=== PATIENT | male | born 1950 | race African-American/Black ===

== ENCOUNTER 2018-05-02 17:31 | Inpatient (IN) | payer OTHER ==
[~2018-05-02] VITALS: Ht 180.3 cm; Wt 72.6 kg
--- NOTE | 2018-05-02 18:24 | PHYS DOC ---
Adult General Chief Complaint Chief Complaint: NEURO SYMPTOMS/DEFICITS HPI HPI Patient is a 68 year old male who presents the emergency room with chief complaint of multiple symptoms primarily symptom is that of dizziness lightheadedness having trouble walking feeling weaker for the last 2 days. Today was having trouble getting off the couch the came to the emergency room family thinks that patient is a left facial droop on further questioning he does have a remote history of an stroke that caused left-sided weakness but they think that the face looks slightly worse than normal possibly. Speech is okay. 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 Says that the left arm feels cold and numb Review of Systems Review of Systems Constitutional: Denies fever or chills [] Eyes: Denies change in visual acuity, redness, or eye pain [] HENT: Denies nasal congestion or sore throat [] Respiratory: Denies cough or shortness of breath [] Cardiovascular: No additional information not addressed in HPI [] : Denies dysuria or hematuria [] Musculoskeletal: Denies back pain or joint pain [] Integument: Denies rash or skin lesions [] All other systems were reviewed and found to be within normal limits, except as documented in this note. Current Medications Current Medications Current Medications Medications (Trade) Dose Ordered Sig/Magen Start Time Stop Time Status Last Admin Dose Admin Famotidine (Pepcid) 20 mg BID 05/02/18 21:00 Labetalol HCl (Normodyne Iv Push) 10 mg PRN Q2HR PRN 05/02/18 19:30 Nicotine (Nicoderm Cq 21mg) 1 patch PRN DAILY PRN 05/02/18 19:30 Promethazine HCl (Phenergan) 12.5 mg PRN Q6HRS PRN 05/02/18 19:30 Tramadol HCl (Ultram) 50 mg PRN Q6HRS PRN 05/02/18 19:30 Allergies Allergies Allergies Coded Allergies Type Severity Reaction Last Updated Verified No Known Drug Allergies 05/02/18 No Physical Exam Physical Exam Constitutional: Well developed, well nourished, no acute distress, non-toxic appearance. [] HENT: Normocephalic, atraumatic, bilateral external ears normal, oropharynx dry , no oral exudates, nose normal. [] Eyes: PERRLA, EOMI, conjunctiva normal, no discharge. [] Neck: Normal range of motion, no tenderness, supple, no stridor. [] Cardiovascular:Heart rate regular rhythm, no murmur [] Lungs & Thorax: Bilateral breath sounds clear to auscultation [] Abdomen: Bowel sounds normal, soft, no tenderness, no masses, no pulsatile masses. [] Skin: Warm, dry, no erythema, no rash. [] Back: No tenderness, no CVA tenderness. 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 Sensation is decreased to light touch in the left upper extremity. Total strokes also 5 some of this is likely to be old based on his previous history. Psychologic: Affect normal, judgement normal, mood normal. [] Current Patient Data Vital Signs Vital Signs Date Time Temp Pulse Resp B/P (MAP) Pulse Ox O2 Delivery O2 Flow Rate FiO2 05/02/18 18:08 98.1 92 16 159/100 (119) 100 Room Air 98.1 Lab Values Laboratory Tests Test 05/02/18 18:00 White Blood Count 4.0 x10^3/uL (4.0-11.0) Red Blood Count 3.67 x10^6/uL (4.30-5.70) L Hemoglobin 12.6 g/dL (13.0-17.5) L Hematocrit 36.9 % (39.0-53.0) L Mean Corpuscular Volume 101 fL (79-100) H Mean Corpuscular Hemoglobin 34 pg (25-35) Mean Corpuscular Hemoglobin Concent 34 g/dL (31-37) Red Cell Distribution Width 13.1 % (11.5-14.5) Platelet Count 161 x10^3/uL (140-400) Neutrophils (%) (Auto) 42 % (31-73) Lymphocytes (%) (Auto) 41 % (24-48) Monocytes (%) (Auto) 15 % (0-9) H Eosinophils (%) (Auto) 2 % (0-3) Basophils (%) (Auto) 1 % (0-3) Neutrophils # (Auto) 1.7 x10^3uL (1.8-7.7) L Lymphocytes # (Auto) 1.6 x10^3/uL (1.0-4.8) Monocytes # (Auto) 0.6 x10^3/uL (0.0-1.1) Eosinophils # (Auto) 0.1 x10^3/uL (0.0-0.7) Basophils # (Auto) 0.0 x10^3/uL (0.0-0.2) Prothrombin Time 13.3 SEC (11.7-14.0) Prothrombin Time INR 1.0 (0.8-1.1) Sodium Level 139 mmol/L (136-145) Potassium Level 3.9 mmol/L (3.5-5.1) Chloride Level 105 mmol/L (98-107) Carbon Dioxide Level 22 mmol/L (21-32) Anion Gap 12 (6-14) Blood Urea Nitrogen 13 mg/dL (8-26) Creatinine 1.0 mg/dL (0.7-1.3) Estimated GFR (Cockcroft-Gault) 89.6 BUN/Creatinine Ratio 13 (6-20) Glucose Level 113 mg/dL (70-99) H Calcium Level 9.0 mg/dL (8.5-10.1) Magnesium Level 2.1 mg/dL (1.8-2.4) Total Bilirubin 0.3 mg/dL (0.2-1.0) Aspartate Amino Transferase (AST) 54 U/L (15-37) H Alanine Aminotransferase (ALT) 81 U/L (16-63) H Alkaline Phosphatase 70 U/L (46-116) Troponin I Quantitative < 0.017 ng/mL (0.000-0.055) MU-Fub-H-Type Natriuretic Peptide 1303 pg/mL (0-124) H Total Protein 7.7 g/dL (6.4-8.2) Albumin 3.6 g/dL (3.4-5.0) Albumin/Globulin Ratio 0.9 (1.0-1.7) L Laboratory Tests 05/02/18 18:00 Laboratory Tests 05/02/18 18:00 EKG EKG []EKG shows a normal sinus rhythm rate of 90 left bundle branch block pattern no STEMI light of that interpreted by me the timing encounter. Radiology/Procedures Radiology/Procedures [] Impressions: MY READ CXR NEG ACUTE HEAD CT READ PENDING NO ACUTE HEMORHAGE BY MY READ Course & Med Decision Making Course & Med Decision Making Pertinent Labs and Imaging studies reviewed. (See chart for details) 68 YO M HX OF PRIOR CVA, OTHER MEDICAL PROBLEMS NOTED ABOVE []some new neuro symptoms with baseline old left side deficits, possible there could be small new infarct, possible it could be recrudescence, will do usual workup and admit overnight for observation WAITING ON U/A D/W EDILMA Plummer Disclaimer Kavitha Disclaimer This electronic medical record was generated, in whole or in part, using a voice recognition dictation system. Departure Departure Impression: Primary Impression: Weakness Disposition: ADMITTED INPATIENT Admitting Physician: Phoebe Guerra, Other Condition: STABLE NIHSS Stroke Scale NIH Stroke Scale: NIH Stroke Scale Response (Comments) Value Level of Consciousness: 0 Alert/Responsive 0 LOC Questions: 0 Answers both correctly 0 LOC Commands: 0 Performs both tasks 0 Best Gaze: 0 Normal 0 Visual: 1 Partial hemianopia 1 Facial Palsy: 1 Minor paralysis 1 Motor - Left Arm 0 No drift 0 Motor - Right Arm 0 No drift 0 Motor - Left Leg 1 Drift but can hold 1 Motor: Right Leg 0 No drift 0 Limb Ataxia: 0 Absent 0 Sensory: 1 Mid to moderate loss 1 Best Language: 0 Normal 0 Dysathria: 1 Mild to moderate 1 Extinction and Inattention: 0 Normal 0 Total 5 SRINIVAS SMART MD May 02, 2018 18:24
[2018-05-02 18:34] LABS: BASO % 1 % (0-3); EOS # 0.1 x10^3/uL (0.0-0.7); EOS % 2 % (0-3); HEMATOCRIT 36.9 % (39.0-53.0); HEMOGLOBIN 12.6 g/dL (13.0-17.5); LYMPH # 1.6 x10^3/uL (1.0-4.8); LYMPH % 41 % (24-48); MEAN CORPUSCULAR HEMOGLOBIN 34 pg (25-35); MEAN CORPUSCULAR HGB CONC 34 g/dL (31-37); MEAN CORPUSCULAR VOLUME 101 fL (79-100); MONO # 0.6 x10^3/uL (0.0-1.1); MONO % 15 % (0-9); NEUT # 1.7 x10^3uL (1.8-7.7); NEUT % 42 % (31-73); PLATELET COUNT 161 x10^3/uL (140-400); RED BLOOD COUNT 3.67 x10^6/uL (4.30-5.70); RED CELL DISTRIBUTION WIDTH 13.1 % (11.5-14.5)
[2018-05-02 18:43] LABS: PROTHROMBIN TIME PATIENT 13.3 SEC (11.7-14.0)
[2018-05-02 18:48] LABS: GFR 89.6; POTASSIUM 3.9 mmol/L (3.5-5.1)
[2018-05-02 18:53] LABS: ALBUMIN 3.6 g/dL (3.4-5.0); ALBUMIN/GLOBULIN RATIO 0.9 (1.0-1.7); MAGNESIUM 2.1 mg/dL (1.8-2.4); TOTAL BILIRUBIN 0.3 mg/dL (0.2-1.0); TOTAL PROTEIN 7.7 g/dL (6.4-8.2)
[2018-05-02 19:30] LABS: BILIRUBIN,URINE SMALL (NEG); CLARITY,URINE CLEAR; COLOR,URINE YELLOW; NITRITE,URINE NEGATIVE (NEG); PH,URINE 5.5; PROTEIN,URINE NEGATIVE (NEG-TRACE)
[2018-05-02] MEDS ORDERED: LABETALOL 20 MG/4 ML DISP.SYRIN. IVP PRN (19:30)
[2018-05-02] MEDS ORDERED: traMADol 50 MG TABLET PO PRN (19:30)
[2018-05-02] MEDS ORDERED: NICOTINE 21MG PATCH. TD PRN (19:30)
[2018-05-02] MEDS ORDERED: PROMETHAZINE 12.5 MG TABLET. PO PRN (19:30)
--- NOTE | 2018-05-02 19:32 | PDOC1 ---
History and Physical Date of Admission Date of Admission DATE: 05/02/18 TIME: 19:26 Identification/Chief Complaint Chief Complaint Left-sided facial droop, left arm tingling numbness, cold left feet since yesterday Source Source: Caregiver, Chart review, Patient History of Present Illness History of Present Illness 68-year-old male brought in by concerned son, lives at home, good ADLs and IADLs, only takes couple of medications at home including a PPI, tramadol, aspirin 81, Advair and promethazine. He does smoke 1 pack last him 3 days. Chief complaint of above: three-day duration of left arm tingling numbness , cold feet, left and left-sided facial drooping. No odynophagia or difficulty swallowing. CT head and chest x-rays pending. The blood pressure on the high side 159 systolic. Admitted for stroke workup History of CABG 1992 and back surgery and prostate cancer which is otherwise quiescent Past Medical History Cardiovascular: CAD Pulmonary: Bronchitis, COPD GI: GERD Past Surgical History Past Surgical History: CABG, Other (back sx) Family History Family History: Hypertension Social History Smoke: <1 pack per day ALCOHOL: none Drugs: None Current Problem List Problem List Problems Medical Problems: (1) Weakness Status: Acute Current Medications Current Medications Current Medications Labetalol HCl (Normodyne Iv Push) 10 mg PRN Q2HR PRN IVP HYPERTENSION, SEE COMMENTS; Start 05/02/18 at 19:30; Status UNV Allergies Allergies: Coded Allergies: No Known Drug Allergies (Unverified , 05/02/18) ROS Review of System As per history of present illness, the rest of ROS 14 point negative Physical Exam General: Alert, Oriented X3, Cooperative, No acute distress HEENT: EOMI, Mucous membr. moist/pink, Other (shallow left nasolabial fold) Lungs: Clear to auscultation, Normal air movement Heart: S1S2, RRR, no thrills, no rubs, no gallops, no murmurs Cardiovascular: S1, S2 Abdomen: Normal bowel sounds, Soft, No tenderness, No hepatosplenomegaly, No masses Male Genitals Exam: normal genitalia, normal prostate Rectal Exam: not examined PELVIC: Nml ext genitalia Extremities: No clubbing, No cyanosis, No edema, Normal pulses, No tenderness/ swelling Skin: No rashes, No breakdown, No significant lesion Neuro: Normal gait, Normal speech, Strength at 5/5 X4 ext, Normal tone, Sensation intact, Cranial nerves 3-12 NL, Reflexes 2+ Psych/Mental Status: Mental status NL, Mood NL Vitals Vitals Vital Signs Date Time Temp Pulse Resp B/P (MAP) Pulse Ox O2 Delivery O2 Flow Rate FiO2 05/02/18 18:08 98.1 92 16 159/100 (119) 100 Room Air 98.1 Labs Labs Laboratory Tests Test 05/02/18 18:00 White Blood Count 4.0 x10^3/uL (4.0-11.0) Red Blood Count 3.67 x10^6/uL (4.30-5.70) Hemoglobin 12.6 g/dL (13.0-17.5) Hematocrit 36.9 % (39.0-53.0) Mean Corpuscular Volume 101 fL (79-100) Mean Corpuscular Hemoglobin 34 pg (25-35) Mean Corpuscular Hemoglobin Concent 34 g/dL (31-37) Red Cell Distribution Width 13.1 % (11.5-14.5) Platelet Count 161 x10^3/uL (140-400) Neutrophils (%) (Auto) 42 % (31-73) Lymphocytes (%) (Auto) 41 % (24-48) Monocytes (%) (Auto) 15 % (0-9) Eosinophils (%) (Auto) 2 % (0-3) Basophils (%) (Auto) 1 % (0-3) Neutrophils # (Auto) 1.7 x10^3uL (1.8-7.7) Lymphocytes # (Auto) 1.6 x10^3/uL (1.0-4.8) Monocytes # (Auto) 0.6 x10^3/uL (0.0-1.1) Eosinophils # (Auto) 0.1 x10^3/uL (0.0-0.7) Basophils # (Auto) 0.0 x10^3/uL (0.0-0.2) Prothrombin Time 13.3 SEC (11.7-14.0) Prothromb Time International Ratio 1.0 (0.8-1.1) Sodium Level 139 mmol/L (136-145) Potassium Level 3.9 mmol/L (3.5-5.1) Chloride Level 105 mmol/L (98-107) Carbon Dioxide Level 22 mmol/L (21-32) Anion Gap 12 (6-14) Blood Urea Nitrogen 13 mg/dL (8-26) Creatinine 1.0 mg/dL (0.7-1.3) Estimated GFR (Cockcroft-Gault) 89.6 BUN/Creatinine Ratio 13 (6-20) Glucose Level 113 mg/dL (70-99) Calcium Level 9.0 mg/dL (8.5-10.1) Magnesium Level 2.1 mg/dL (1.8-2.4) Total Bilirubin 0.3 mg/dL (0.2-1.0) Aspartate Amino Transf (AST/SGOT) 54 U/L (15-37) Alanine Aminotransferase (ALT/SGPT) 81 U/L (16-63) Alkaline Phosphatase 70 U/L (46-116) Troponin I Quantitative < 0.017 ng/mL (0.000-0.055) KB-Pol-V-Type Natriuretic Peptide 1303 pg/mL (0-124) Total Protein 7.7 g/dL (6.4-8.2) Albumin 3.6 g/dL (3.4-5.0) Albumin/Globulin Ratio 0.9 (1.0-1.7) Laboratory Tests Test 05/02/18 18:00 White Blood Count 4.0 x10^3/uL (4.0-11.0) Red Blood Count 3.67 x10^6/uL (4.30-5.70) Hemoglobin 12.6 g/dL (13.0-17.5) Hematocrit 36.9 % (39.0-53.0) Mean Corpuscular Volume 101 fL (79-100) Mean Corpuscular Hemoglobin 34 pg (25-35) Mean Corpuscular Hemoglobin Concent 34 g/dL (31-37) Red Cell Distribution Width 13.1 % (11.5-14.5) Platelet Count 161 x10^3/uL (140-400) Neutrophils (%) (Auto) 42 % (31-73) Lymphocytes (%) (Auto) 41 % (24-48) Monocytes (%) (Auto) 15 % (0-9) Eosinophils (%) (Auto) 2 % (0-3) Basophils (%) (Auto) 1 % (0-3) Neutrophils # (Auto) 1.7 x10^3uL (1.8-7.7) Lymphocytes # (Auto) 1.6 x10^3/uL (1.0-4.8) Monocytes # (Auto) 0.6 x10^3/uL (0.0-1.1) Eosinophils # (Auto) 0.1 x10^3/uL (0.0-0.7) Basophils # (Auto) 0.0 x10^3/uL (0.0-0.2) Prothrombin Time 13.3 SEC (11.7-14.0) Prothromb Time International Ratio 1.0 (0.8-1.1) Sodium Level 139 mmol/L (136-145) Potassium Level 3.9 mmol/L (3.5-5.1) Chloride Level 105 mmol/L (98-107) Carbon Dioxide Level 22 mmol/L (21-32) Anion Gap 12 (6-14) Blood Urea Nitrogen 13 mg/dL (8-26) Creatinine 1.0 mg/dL (0.7-1.3) Estimated GFR (Cockcroft-Gault) 89.6 BUN/Creatinine Ratio 13 (6-20) Glucose Level 113 mg/dL (70-99) Calcium Level 9.0 mg/dL (8.5-10.1) Magnesium Level 2.1 mg/dL (1.8-2.4) Total Bilirubin 0.3 mg/dL (0.2-1.0) Aspartate Amino Transf (AST/SGOT) 54 U/L (15-37) Alanine Aminotransferase (ALT/SGPT) 81 U/L (16-63) Alkaline Phosphatase 70 U/L (46-116) Troponin I Quantitative < 0.017 ng/mL (0.000-0.055) KM-Uly-H-Type Natriuretic Peptide 1303 pg/mL (0-124) Total Protein 7.7 g/dL (6.4-8.2) Albumin 3.6 g/dL (3.4-5.0) Albumin/Globulin Ratio 0.9 (1.0-1.7) VTE Prophylaxis Ordered VTE Prophylaxis Devices: Yes VTE Pharmacological Prophylaxi: Yes Assessment/Plan Assessment/Plan Left facial droop, left-sided arm tingling numbness, left cold feet-out of TPA window -Rule out acute CVA right side- Check CT head, MRI if that is negative Aspirin if CT head is negative Consult neurology Admit to 6 floor History of CABG 1992 History of back surgery 2015 History of prostate cancer, chronic Accelerated hypertension POA Plan: CT head, MRI if CT is negative, aspirin if CT head negative, control blood pressure, neurology consult, alllow permissive hTN I have reconciled home meds Seen at ER FULL Code TIMOTHY FRANCE MD May 02, 2018 19:31
--- NOTE | 2018-05-02 19:39 | RAD ---
PQRS Compliance statement: One or more of the following individualized dose reduction techniques were utilized for this examination: 1. Automated exposure control. 2. Adjustment of the mA and/or kV according to patient size. 3. Use of iterative reconstruction technique. Indication:left side weakness, hx of old cva with left side weakness. prev sent TECHNIQUE: CT head without IV contrast COMPARISON:MRI brain from 07/24/2008 FINDINGS: No pathologic extra-axial or intra-axial fluid collection. The ventricles and basal cisterns are within normal limits. Mild periventricular and deep white matter low-attenuation is seen. Chronic lacunar infarct in the left basal ganglia. No acute intracranial bleed. No focal loss of stroud-white differentiation. Orbits are within normal limits. Mucoperiosteal thickening seen of the bilateral visualized maxillary sinuses. No suspicious calvarial lesion. IMPRESSION: 1. No acute intracranial process. If concern for acute ischemic stroke is high, please consider MRI brain. 2. Chronic left basal ganglia lacunar infarcts. 3. White matter changes likely secondary to chronic microvascular ischemic disease. Electronically signed by: Tanner Osuna DO (05/02/2018 7:36 PM) [facility]
[2018-05-02 20:11] LABS: BACTERIA,URINE 0 /HPF (0-FEW); RBC,URINE OCC /HPF (0-2); SQUAMOUS EPITHELIAL CELL,UR OCC /LPF
[2018-05-02] MEDS ORDERED: ASPIRIN CHEWABLE 81 MG TABLET. PO ONE (20:15)
--- NOTE | 2018-05-02 20:29 | RAD ---
PROCEDURE: PORTABLE CHEST 1V CLINICAL INDICATION: ER PATIENT. WEAKNESS, FACIAL DROOP. PRIOR XRAY COMPARISON: None FINDINGS: Median sternotomy. No pneumothorax identified. Cardiac and mediastinal contours unremarkable. No pulmonary consolidation or acute airspace disease. No acute osseous abnormalities identified. IMPRESSION: No pulmonary consolidation or acute airspace disease. Electronically signed by: Tanner Osuna DO (05/02/2018 8:26 PM) [facility]
[2018-05-02] MEDS: FAMOTIDINE 20 MG TABLET. PO SCH (21:00)
[2018-05-02 22:30] VITALS: BP 143/97
[2018-05-03] MEDS ORDERED: PROM118S5 PO (01:12)
[2018-05-03] MEDS ORDERED: TRAM50TA PO (01:12)
[2018-05-03] MEDS ORDERED: ASPI325T11 PO (01:12)
[2018-05-03] MEDS ORDERED: FLUT1DIS5 IH (01:12)
[2018-05-03] MEDS ORDERED: traMADol 50 MG TABLET PO PRN (01:15)
[2018-05-03 03:05] VITALS: BP 132/76
--- NOTE | 2018-05-03 04:56 | EKG ---
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
[2018-05-03] MEDS: BUDESONIDE 0.5 MG/2 ML NEBU. NEB SCH ×2 (06:07→19:42)
[2018-05-03] MEDS: ALBUTEROL SULFATE 2.5 MG/3 ML NEBU. NEB SCH ×4 (06:07→19:42)
[2018-05-03 07:15] VITALS: BP 132/79
[2018-05-03] MEDS: FAMOTIDINE 20 MG TABLET. PO SCH ×2 (08:33→21:01)
[2018-05-03] MEDS: ASPIRIN ENTERIC COATED 325 MG TABLET.DR. PO SCH (08:33)
[2018-05-03] MEDS ORDERED: NON FORMULARY ITEM (Fluticasone/Salmeterol (Advair 500-50 Diskus) 1 PUFF) IH SCH (09:00)
--- NOTE | 2018-05-03 09:00 | PDOC ---
PROGRESS NOTES History of Present Illness History of Present Illness Assessment/Plan Assessment/Plan Left facial droop, left-sided arm tingling numbness, left cold feet-out of TPA window -Rule out acute CVA right side- Check CT head, MRI probable component of chronic microvascular ischemic disease and also old lacunar infarcts Third and lateral ventriculomegaly is greater than previously, could be due to progression of supratentorial involutional change although difficult to exclude component of communicating hydrocephalus. THC ABUSE Aspirin if CT head is negative neurology following Admit to 6 floor History of CABG 1992 History of back surgery 2016 History of prostate cancer, chronic Accelerated hypertension POA Plan: CT head, MRI if CT is negative, aspirin if CT head negative, control blood pressure, neurology consult, pending permissive hTN Vitals Vitals Vital Signs Date Time Temp Pulse Resp B/P (MAP) Pulse Ox O2 Delivery O2 Flow Rate FiO2 05/03/18 07:43 Room Air 05/03/18 07:15 98.0 76 20 132/79 (96) 99 98.0 Physical Exam General: Alert, Oriented X3, Cooperative, No acute distress Abdomen: Normal bowel sounds, Soft, No tenderness, No hepatosplenomegaly, No masses Extremities: No clubbing, No cyanosis, No edema, Normal pulses, No tenderness/ swelling Skin: No rashes, No breakdown, No significant lesion Labs LABS MRI Brain without contrast History: Left facial droop, left weakness for 3 days Technique: Multiplanar, multisequential noncontrast MR imaging was performed of the brain. Comparison: May 24, 2008 Findings: There is motion degradation. There is no evidence of recent infarct. There is mild to moderate lateral ventriculomegaly and third ventriculomegaly greater than previously. There is generalized supratentorial atrophy. There has been progression of mild to moderate T2 and FLAIR hyperintense abnormality of the supratentorial periventricular white matter bilaterally, also some involvement of the deep white matter. Mild T2 and FLAIR hyperintense signal abnormality of the [place] is also greater. There are again old lacunar infarcts left thalamus and basal ganglia, also small focus of the right basal ganglia probably new in interval. There is a small focus of old microhemorrhage of the central lorena. There is increased severe right maxillary sinus mucosal thickening, residual moderate to severe left maxillary sinus mucosal thickening overall decreased. There has been lens surgery on the left. Impression: 1. There is no evidence of recent infarct. Compared with 2009 exam, there has been progression of T2 and FLAIR hyperintense signal abnormality of the supratentorial parenchyma and lore[place], probable component of chronic microvascular ischemic disease and also old lacunar infarcts as stated. Third and lateral ventriculomegaly is greater than previously, could be due to progression of supratentorial involutional change although difficult to exclude component of communicating hydrocephalus. 2. There is paranasal sinus mucosal thickening as stated greatest of the right maxillary sinus. Electronically signed by: Juan Santana MD (05/03/2018 3:13 PM) [id number] Laboratory Tests Test 05/02/18 18:00 05/02/18 19:19 White Blood Count 4.0 x10^3/uL (4.0-11.0) Red Blood Count 3.67 x10^6/uL (4.30-5.70) Hemoglobin 12.6 g/dL (13.0-17.5) Hematocrit 36.9 % (39.0-53.0) Mean Corpuscular Volume 101 fL (79-100) Mean Corpuscular Hemoglobin 34 pg (25-35) Mean Corpuscular Hemoglobin Concent 34 g/dL (31-37) Red Cell Distribution Width 13.1 % (11.5-14.5) Platelet Count 161 x10^3/uL (140-400) Neutrophils (%) (Auto) 42 % (31-73) Lymphocytes (%) (Auto) 41 % (24-48) Monocytes (%) (Auto) 15 % (0-9) Eosinophils (%) (Auto) 2 % (0-3) Basophils (%) (Auto) 1 % (0-3) Neutrophils # (Auto) 1.7 x10^3uL (1.8-7.7) Lymphocytes # (Auto) 1.6 x10^3/uL (1.0-4.8) Monocytes # (Auto) 0.6 x10^3/uL (0.0-1.1) Eosinophils # (Auto) 0.1 x10^3/uL (0.0-0.7) Basophils # (Auto) 0.0 x10^3/uL (0.0-0.2) Prothrombin Time 13.3 SEC (11.7-14.0) Prothromb Time International Ratio 1.0 (0.8-1.1) Sodium Level 139 mmol/L (136-145) Potassium Level 3.9 mmol/L (3.5-5.1) Chloride Level 105 mmol/L (98-107) Carbon Dioxide Level 22 mmol/L (21-32) Anion Gap 12 (6-14) Blood Urea Nitrogen 13 mg/dL (8-26) Creatinine 1.0 mg/dL (0.7-1.3) Estimated GFR (Cockcroft-Gault) 89.6 BUN/Creatinine Ratio 13 (6-20) Glucose Level 113 mg/dL (70-99) Calcium Level 9.0 mg/dL (8.5-10.1) Magnesium Level 2.1 mg/dL (1.8-2.4) Total Bilirubin 0.3 mg/dL (0.2-1.0) Aspartate Amino Transf (AST/SGOT) 54 U/L (15-37) Alanine Aminotransferase (ALT/SGPT) 81 U/L (16-63) Alkaline Phosphatase 70 U/L (46-116) Troponin I Quantitative < 0.017 ng/mL (0.000-0.055) VA-[id number]-Type Natriuretic Peptide 1303 pg/mL (0-124) Total Protein 7.7 g/dL (6.4-8.2) Albumin 3.6 g/dL (3.4-5.0) Albumin/Globulin Ratio 0.9 (1.0-1.7) Urine Collection Type Unknown Urine Color Yellow Urine Clarity Clear Urine pH 5.5 Urine Specific [place] >=1.030 Urine Protein Negative mg/dL (NEG-TRACE) Urine Glucose (UA) Negative mg/dL (NEG) Urine Ketones (Stick) Negative mg/dL (NEG) Urine Blood Negative (NEG) Urine Nitrite Negative (NEG) Urine Bilirubin Small (NEG) Urine Urobilinogen Dipstick 1.0 mg/dL (0.2 mg/dL) Urine Leukocyte Esterase Negative (NEG) Urine RBC Occ /HPF (0-2) Urine WBC 1-4 /HPF (0-4) Urine Squamous Epithelial Cells Occ /LPF Urine Bacteria 0 /HPF (0-FEW) Urine Mucus Marked /LPF Assessment and Plan Assessmemt and Plan Problems Medical Problems: (1) Weakness Status: Acute Comment Review of Relevant I have reviewed the following items joan (where applicable) has been applied. Labs Laboratory Tests Test 05/02/18 18:00 05/02/18 19:19 White Blood Count 4.0 x10^3/uL (4.0-11.0) Red Blood Count 3.67 x10^6/uL (4.30-5.70) Hemoglobin 12.6 g/dL (13.0-17.5) Hematocrit 36.9 % (39.0-53.0) Mean Corpuscular Volume 101 fL (79-100) Mean Corpuscular Hemoglobin 34 pg (25-35) Mean Corpuscular Hemoglobin Concent 34 g/dL (31-37) Red Cell Distribution Width 13.1 % (11.5-14.5) Platelet Count 161 x10^3/uL (140-400) Neutrophils (%) (Auto) 42 % (31-73) Lymphocytes (%) (Auto) 41 % (24-48) Monocytes (%) (Auto) 15 % (0-9) Eosinophils (%) (Auto) 2 % (0-3) Basophils (%) (Auto) 1 % (0-3) Neutrophils # (Auto) 1.7 x10^3uL (1.8-7.7) Lymphocytes # (Auto) 1.6 x10^3/uL (1.0-4.8) Monocytes # (Auto) 0.6 x10^3/uL (0.0-1.1) Eosinophils # (Auto) 0.1 x10^3/uL (0.0-0.7) Basophils # (Auto) 0.0 x10^3/uL (0.0-0.2) Prothrombin Time 13.3 SEC (11.7-14.0) Prothromb Time International Ratio 1.0 (0.8-1.1) Sodium Level 139 mmol/L (136-145) Potassium Level 3.9 mmol/L (3.5-5.1) Chloride Level 105 mmol/L (98-107) Carbon Dioxide Level 22 mmol/L (21-32) Anion Gap 12 (6-14) Blood Urea Nitrogen 13 mg/dL (8-26) Creatinine 1.0 mg/dL (0.7-1.3) Estimated GFR (Cockcroft-Gault) 89.6 BUN/Creatinine Ratio 13 (6-20) Glucose Level 113 mg/dL (70-99) Calcium Level 9.0 mg/dL (8.5-10.1) Magnesium Level 2.1 mg/dL (1.8-2.4) Total Bilirubin 0.3 mg/dL (0.2-1.0) Aspartate Amino Transf (AST/SGOT) 54 U/L (15-37) Alanine Aminotransferase (ALT/SGPT) 81 U/L (16-63) Alkaline Phosphatase 70 U/L (46-116) Troponin I Quantitative < 0.017 ng/mL (0.000-0.055) SV-[id number]-Type Natriuretic Peptide 1303 pg/mL (0-124) Total Protein 7.7 g/dL (6.4-8.2) Albumin 3.6 g/dL (3.4-5.0) Albumin/Globulin Ratio 0.9 (1.0-1.7) Urine Collection Type Unknown Urine Color Yellow Urine Clarity Clear Urine pH 5.5 Urine Specific [place] >=1.030 Urine Protein Negative mg/dL (NEG-TRACE) Urine Glucose (UA) Negative mg/dL (NEG) Urine Ketones (Stick) Negative mg/dL (NEG) Urine Blood Negative (NEG) Urine Nitrite Negative (NEG) Urine Bilirubin Small (NEG) Urine Urobilinogen Dipstick 1.0 mg/dL (0.2 mg/dL) Urine Leukocyte Esterase Negative (NEG) Urine RBC Occ /HPF (0-2) Urine WBC 1-4 /HPF (0-4) Urine Squamous Epithelial Cells Occ /LPF Urine Bacteria 0 /HPF (0-FEW) Urine Mucus Marked /LPF Laboratory Tests Test 05/02/18 18:00 05/02/18 19:19 White Blood Count 4.0 x10^3/uL (4.0-11.0) Red Blood Count 3.67 x10^6/uL (4.30-5.70) Hemoglobin 12.6 g/dL (13.0-17.5) Hematocrit 36.9 % (39.0-53.0) Mean Corpuscular Volume 101 fL (79-100) Mean Corpuscular Hemoglobin 34 pg (25-35) Mean Corpuscular Hemoglobin Concent 34 g/dL (31-37) Red Cell Distribution Width 13.1 % (11.5-14.5) Platelet Count 161 x10^3/uL (140-400) Neutrophils (%) (Auto) 42 % (31-73) Lymphocytes (%) (Auto) 41 % (24-48) Monocytes (%) (Auto) 15 % (0-9) Eosinophils (%) (Auto) 2 % (0-3) Basophils (%) (Auto) 1 % (0-3) Neutrophils # (Auto) 1.7 x10^3uL (1.8-7.7) Lymphocytes # (Auto) 1.6 x10^3/uL (1.0-4.8) Monocytes # (Auto) 0.6 x10^3/uL (0.0-1.1) Eosinophils # (Auto) 0.1 x10^3/uL (0.0-0.7) Basophils # (Auto) 0.0 x10^3/uL (0.0-0.2) Prothrombin Time 13.3 SEC (11.7-14.0) Prothromb Time International Ratio 1.0 (0.8-1.1) Sodium Level 139 mmol/L (136-145) Potassium Level 3.9 mmol/L (3.5-5.1) Chloride Level 105 mmol/L (98-107) Carbon Dioxide Level 22 mmol/L (21-32) Anion Gap 12 (6-14) Blood Urea Nitrogen 13 mg/dL (8-26) Creatinine 1.0 mg/dL (0.7-1.3) Estimated GFR (Cockcroft-Gault) 89.6 BUN/Creatinine Ratio 13 (6-20) Glucose Level 113 mg/dL (70-99) Calcium Level 9.0 mg/dL (8.5-10.1) Magnesium Level 2.1 mg/dL (1.8-2.4) Total Bilirubin 0.3 mg/dL (0.2-1.0) Aspartate Amino Transf (AST/SGOT) 54 U/L (15-37) Alanine Aminotransferase (ALT/SGPT) 81 U/L (16-63) Alkaline Phosphatase 70 U/L (46-116) Troponin I Quantitative < 0.017 ng/mL (0.000-0.055) RD-[id number]-Type Natriuretic Peptide 1303 pg/mL (0-124) Total Protein 7.7 g/dL (6.4-8.2) Albumin 3.6 g/dL (3.4-5.0) Albumin/Globulin Ratio 0.9 (1.0-1.7) Urine Collection Type Unknown Urine Color Yellow Urine Clarity Clear Urine pH 5.5 Urine Specific [place] >=1.030 Urine Protein Negative mg/dL (NEG-TRACE) Urine Glucose (UA) Negative mg/dL (NEG) Urine Ketones (Stick) Negative mg/dL (NEG) Urine Blood Negative (NEG) Urine Nitrite Negative (NEG) Urine Bilirubin Small (NEG) Urine Urobilinogen Dipstick 1.0 mg/dL (0.2 mg/dL) Urine Leukocyte Esterase Negative (NEG) Urine RBC Occ /HPF (0-2) Urine WBC 1-4 /HPF (0-4) Urine Squamous Epithelial Cells Occ /LPF Urine Bacteria 0 /HPF (0-FEW) Urine Mucus Marked /LPF Medications Current Medications Labetalol HCl (Normodyne Iv Push) 10 mg PRN Q2HR PRN IVP HYPERTENSION, SEE COMMENTS; Start 05/02/18 at 19:30 Tramadol HCl (Ultram) 50 mg PRN Q6HRS PRN PO PAIN; Start 05/02/18 at 19:30 Promethazine HCl (Phenergan) 12.5 mg PRN Q6HRS PRN PO NAUSEA/VOMITING; Start at 19:30 Famotidine (Pepcid) 20 mg BID PO Last administered on 05/03/18at 08:33; Start at 21:00 Nicotine (Nicoderm Cq 21mg) 1 patch PRN DAILY PRN TD SMOKING CESSATION; Start 05/02/18 at 19:30 Aspirin (Children'S Aspirin) 324 mg 1X ONCE PO Last administered on 05/02/18at 20:20; Start 05/02/18 at 20:15; Stop 05/02/18 at 20:16; Status DC Aspirin (Ecotrin) 325 mg DAILYWBKFT PO Last administered on 05/03/18at 08:33; Start 05/03/18 at 08:00 Tramadol HCl (Ultram) 50 mg PRN Q6HRS PRN PO PAIN; Start 05/03/18 at 01:15 Non-Formulary Medication (Fluticasone/ Salmeterol (Advair 500-50 Diskus)) 1 puff BID IH ; Start 05/03/18 at 09:00; Status UNV Budesonide (Pulmicort) 0.5 mg RTBID NEB Last administered on 05/03/18at 06:07; Start 05/03/18 at 08:00 Albuterol Sulfate (Ventolin Neb Soln) 2.5 mg RTQID NEB Last administered on at 06:07; Start 05/03/18 at 08:00 Active Scripts Active Reported Promethazine-Codeine Syrup (Promethazine Hcl/Codeine) 118 Ml Syrup 20 Ml PO DAILY Advair 500-50 Diskus (Fluticasone/Salmeterol) 1 Each Disk.w.dev 1 Puff IH BID Aspirin Ec (Aspirin) 325 Mg Tablet.dr 1 Tab PO DAILY Tramadol Hcl 50 Mg Tablet 50 Mg PO Q6HRS PRN Vitals/I & O Vital Sign - Last 24 Hours 05/02/18 05/02/18 05/02/18 05/02/18 18:08 19:00 20:00 20:30 Temp 98.1 98.1 Pulse 92 82 80 80 Resp 16 B/P (MAP) 159/100 (119) Pulse Ox 100 100 99 99 O2 Delivery Room Air 05/02/18 05/02/18 05/02/18 05/02/18 21:00 21:30 22:30 22:30 Temp 98.1 98.1 Pulse 86 84 86 Resp 16 B/P (MAP) 143/97 (112) Pulse Ox 99 99 99 O2 Delivery Room Air Room Air 05/03/18 05/03/18 05/03/18 05/03/18 03:05 06:07 07:15 07:43 Temp 97.8 98.0 97.8 98.0 Pulse 78 76 Resp 16 20 B/P (MAP) 132/76 (94) 132/79 (96) Pulse Ox 100 97 99 O2 Delivery Room Air Room Air Room Air Room Air Intake and Output 05/02/18 05/02/18 05/03/18 15:00 23:00 07:00 Intake Total 0 ml 240 ml Output Total 200 ml Balance 0 ml 40 ml AYE ROJAS MD May 03, 2018 09:00
[2018-05-03 11:09] VITALS: BP 138/92
[2018-05-03 13:44] LABS: AMPHETAMINE/METHAMPHETAMINE NEG (NEG); BARBITURATES NEG (NEG); BENZODIAZEPINES NEG (NEG); CANNABINOIDS POS (NEG); COCAINE NEG (NEG); METHADONE NEG (NEG); OPIATES NEG (NEG); PHENCYCLIDINE NEG (NEG)
[2018-05-03 15:01] VITALS: BP 133/81
--- NOTE | 2018-05-03 15:16 | RAD ---
MRI Brain without contrast History: Left facial droop, left weakness for 3 days Technique: Multiplanar, multisequential noncontrast MR imaging was performed of the brain. Comparison: May 24, 2008 Findings: There is motion degradation. There is no evidence of recent infarct. There is mild to moderate lateral ventriculomegaly and third ventriculomegaly greater than previously. There is generalized supratentorial atrophy. There has been progression of mild to moderate T2 and FLAIR hyperintense abnormality of the supratentorial periventricular white matter bilaterally, also some involvement of the deep white matter. Mild T2 and FLAIR hyperintense signal abnormality of the [place] is also greater. There are again old lacunar infarcts left thalamus and basal ganglia, also small focus of the right basal ganglia probably new in interval. There is a small focus of old microhemorrhage of the central [place]. There is increased severe right maxillary sinus mucosal thickening, residual moderate to severe left maxillary sinus mucosal thickening overall decreased. There has been lens surgery on the left. Impression: 1. There is no evidence of recent infarct. Compared with 2008 exam, there has been progression of T2 and FLAIR hyperintense signal abnormality of the supratentorial parenchyma and [place], probable component of chronic microvascular ischemic disease and also old lacunar infarcts as stated. Third and lateral ventriculomegaly is greater than previously, could be due to progression of supratentorial involutional change although difficult to exclude component of communicating hydrocephalus. 2. There is paranasal sinus mucosal thickening as stated greatest of the right maxillary sinus. Electronically signed by: Juan Santana MD (05/03/2018 3:13 PM) [id number]
--- NOTE | 2018-05-03 18:09 | PDOC2 ---
NEUROLOGY CONSULT Date of Admission Date of Admission DATE: 05/03/18 TIME: 17:40 Reason for Consult Reason for Consult: IMPRESSION: Small subacute right BG infarct likely. Metabolic encephalopathy. Left side facial drooping x 1-2 days. Left UE numbness x 2 days. Dizziness x 2 days. Light headiness x 2 days. HTN. Old lorena microhemorrhage. 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 CAD s/p CABG. Cannabinoid positive. RECOMMENDATIONS/PLAN: ASA 325 mg daily. Lipitor HS. Carotid A US + Doppler. Echo + Bubble study. Fasting lipid panel in a.m. History of Present Illness 68-year-old male with above medical diseases and old stroke developed symptoms of dizziness, light headiness, left side UE numbness and tingling about 2 days ago and his symptoms persistent. He was noted left side facial drooping and was brought in by concerned son, lives at home, to the ER of [facility] for further evaluation. Past Medical History Cardiovascular: CAD Pulmonary: Bronchitis, COPD GI: GERD Neurology: Olc stroke. Past Surgical History CABG, Other (back sx) Family History Hypertension Social History Smoke: <1 pack per day ALCOHOL: Denied. Drugs: None, but test positive for cannabinoids. ALLERGY: Unknown MEDICATIONS: Refer to MAR REVIEW OF SYSTEMS: Constitutional: No malnutrition, weight loss, cachexia. Head: No traumatic brain or head injury. Skin: No edema, or rash. Ear: No infection. Eyes: No vision loss or color blindness. Nose: No bleeding or purulent discharges. Hearing: Hearing decrease. Neck: No injury. Cardiac:CAD, s/p CABG, HTN, HLD. Pulmonary: Smoking. GI: No GI ulcer, GI bleeding. Urinary/genital: No dysuria, incontinence, urinary retention. Endocrinologic: No cousin face, craniofacial dysmorphism, polydactyly. Skeletomuscular: Generalized weakness. Neurological: see HP. Psychiatric: Drug use/abuse. Otherwise, not [id number] review of systems. PHYSICAL EXAMINATION: General appearance is in subacute distress. HEENT: Normocephalic and nontraumatic. Eyes, nose, ears, and throat are unremarkable. Neck is supple. No lymphadenopathy. No crepitus. Cardiovascular: S1, S2, regular rate and rhythm. Pulmonary: Clear to auscultation bilaterally. Abdomen: Bowel sounds are positive. Extremities: No rash, lesions, or edema. No restriction of range of motion NEUROLOGICAL EXAMINATION: Awake. Not oriented to time, but knew place and person. PERRL. EOMI. CN: no focal findings. Muscle tone: Fluctuated. Muscle strength: 4 DTR: 2 Plantar reflex: Neutral response bilaterally Gait: not examined in bed. Sensory exam: no abnormal findings. No cerebellar signs elicited. F-T-N test fine. Current Medications Current Medications Current Medications Labetalol HCl (Normodyne Iv Push) 10 mg PRN Q2HR PRN IVP HYPERTENSION, SEE COMMENTS; Start 05/02/18 at 19:30 Tramadol HCl (Ultram) 50 mg PRN Q6HRS PRN PO PAIN; Start 05/02/18 at 19:30 Promethazine HCl (Phenergan) 12.5 mg PRN Q6HRS PRN PO NAUSEA/VOMITING; Start at 19:30 Famotidine (Pepcid) 20 mg BID PO Last administered on 05/03/18at 08:33; Start at 21:00 Nicotine (Nicoderm Cq 21mg) 1 patch PRN DAILY PRN TD SMOKING CESSATION; Start 05/02/18 at 19:30 Aspirin (Children'S Aspirin) 324 mg 1X ONCE PO Last administered on 05/02/18at 20:20; Start 05/02/18 at 20:15; Stop 05/02/18 at 20:16; Status DC Aspirin (Ecotrin) 325 mg DAILYWBKFT PO Last administered on 05/03/18at 08:33; Start 05/03/18 at 08:00 Tramadol HCl (Ultram) 50 mg PRN Q6HRS PRN PO PAIN; Start 05/03/18 at 01:15; Status Cancel Non-Formulary Medication (Fluticasone/ Salmeterol (Advair 500-50 Diskus)) 1 puff BID IH ; Start 05/03/18 at 09:00; Status UNV Budesonide (Pulmicort) 0.5 mg RTBID NEB Last administered on 05/03/18at 06:07; Start 05/03/18 at 08:00 Albuterol Sulfate (Ventolin Neb Soln) 2.5 mg RTQID NEB Last administered on at 14:57; Start 05/03/18 at 08:00 Active Scripts Active Reported Promethazine-Codeine Syrup (Promethazine Hcl/Codeine) 118 Ml Syrup 20 Ml PO DAILY Advair 500-50 Diskus (Fluticasone/Salmeterol) 1 Each Disk.w.dev 1 Puff IH BID Aspirin Ec (Aspirin) 325 Mg Tablet.dr 1 Tab PO DAILY Tramadol Hcl 50 Mg Tablet 50 Mg PO Q6HRS PRN Allergies Allergies: Allergies Coded Allergies Type Severity Reaction Last Updated Verified No Known Drug Allergies 05/02/18 No ROS Review of System The patient denies any associated fevers, chills, headache, ear pain, rhinorrhea , sore throat, stiff neck, productive cough, chest pain, shortness of breath, back or flank pain, abdominal pain, nausea, vomiting, diarrhea, constipation, dysuria, rash, numbness, weakness, tingling, incontinence, difficulty ambulating, or diaphoresis. Physical Exam Physical Exam General: Well developed, well nourished, no acute distress, well appearing HEENT: Pupils equally round and reactive to light, EOMI, no discharge, normal conjunctiva Neck: Supple, no nuchal rigidity, no JVD, trachea midline, no tenderness Cardiac: RRR, no murmurs, no gallops, no rubs Chest/Lungs: CTAB, no wheeze, no rhonchi, no crackles Abdomen: soft, non-distended, no guarding, no peritoneal signs, non-tender Back: No tenderness Extremities: no edema, pulses intact, non-tender,capillary refill <3 sec bilateral upper and lower extremities, Neuro: Alert and oriented x 4, no focal deficits, normal speech Vitals Vitals: Vital Signs Date Time Temp Pulse Resp B/P (MAP) Pulse Ox O2 Delivery O2 Flow Rate FiO2 05/03/18 15:01 97.6 81 18 133/81 (98) 96 Room Air 97.6 Labs Labs Laboratory Tests Test 05/02/18 18:00 05/02/18 19:19 05/03/18 12:25 05/03/18 13:00 White Blood Count 4.0 x10^3/uL (4.0-11.0) Red Blood Count 3.67 x10^6/uL (4.30-5.70) Hemoglobin 12.6 g/dL (13.0-17.5) Hematocrit 36.9 % (39.0-53.0) Mean Corpuscular Volume 101 fL (79-100) Mean Corpuscular Hemoglobin 34 pg (25-35) Mean Corpuscular Hemoglobin Concent 34 g/dL (31-37) Red Cell Distribution Width 13.1 % (11.5-14.5) Platelet Count 161 x10^3/uL (140-400) Neutrophils (%) (Auto) 42 % (31-73) Lymphocytes (%) (Auto) 41 % (24-48) Monocytes (%) (Auto) 15 % (0-9) Eosinophils (%) (Auto) 2 % (0-3) Basophils (%) (Auto) 1 % (0-3) Neutrophils # (Auto) 1.7 x10^3uL (1.8-7.7) Lymphocytes # (Auto) 1.6 x10^3/uL (1.0-4.8) Monocytes # (Auto) 0.6 x10^3/uL (0.0-1.1) Eosinophils # (Auto) 0.1 x10^3/uL (0.0-0.7) Basophils # (Auto) 0.0 x10^3/uL (0.0-0.2) Prothrombin Time 13.3 SEC (11.7-14.0) Prothromb Time International Ratio 1.0 (0.8-1.1) Sodium Level 139 mmol/L (136-145) Potassium Level 3.9 mmol/L (3.5-5.1) Chloride Level 105 mmol/L (98-107) Carbon Dioxide Level 22 mmol/L (21-32) Anion Gap 12 (6-14) Blood Urea Nitrogen 13 mg/dL (8-26) Creatinine 1.0 mg/dL (0.7-1.3) Estimated GFR (Cockcroft-Gault) 89.6 BUN/Creatinine Ratio 13 (6-20) Glucose Level 113 mg/dL (70-99) Calcium Level 9.0 mg/dL (8.5-10.1) Magnesium Level 2.1 mg/dL (1.8-2.4) Total Bilirubin 0.3 mg/dL (0.2-1.0) Aspartate Amino Transf (AST/SGOT) 54 U/L (15-37) Alanine Aminotransferase (ALT/SGPT) 81 U/L (16-63) Alkaline Phosphatase 70 U/L (46-116) Troponin I Quantitative < 0.017 ng/mL (0.000-0.055) YA-Grj-L-Type Natriuretic Peptide 1303 pg/mL (0-124) Total Protein 7.7 g/dL (6.4-8.2) Albumin 3.6 g/dL (3.4-5.0) Albumin/Globulin Ratio 0.9 (1.0-1.7) Urine Collection Type Unknown Urine Color Yellow Urine Clarity Clear Urine pH 5.5 Urine Specific [place] >=1.030 Urine Protein Negative mg/dL (NEG-TRACE) Urine Glucose (UA) Negative mg/dL (NEG) Urine Ketones (Stick) Negative mg/dL (NEG) Urine Blood Negative (NEG) Urine Nitrite Negative (NEG) Urine Bilirubin Small (NEG) Urine Urobilinogen Dipstick 1.0 mg/dL (0.2 mg/dL) Urine Leukocyte Esterase Negative (NEG) Urine RBC Occ /HPF (0-2) Urine WBC 1-4 /HPF (0-4) Urine Squamous Epithelial Cells Occ /LPF Urine Bacteria 0 /HPF (0-FEW) Urine Mucus Marked /LPF Vitamin B12 Level 484 pg/mL (247-911) Thyroid Stimulating Hormone (TSH) 0.674 uIU/mL (0.358-3.74) Urine Opiates Screen Neg (NEG) Urine Methadone Screen Neg (NEG) Urine Barbiturates Neg (NEG) Urine Phencyclidine Screen Neg (NEG) Urine Amphetamine/Methamphetamine Neg (NEG) Urine Benzodiazepines Screen Neg (NEG) Urine Cocaine Screen Neg (NEG) Urine Cannabinoids Screen Pos (NEG) Urine Ethyl Alcohol Neg (NEG) Laboratory Tests Test 05/02/18 18:00 05/02/18 19:19 05/03/18 12:25 05/03/18 13:00 White Blood Count 4.0 x10^3/uL (4.0-11.0) Red Blood Count 3.67 x10^6/uL (4.30-5.70) Hemoglobin 12.6 g/dL (13.0-17.5) Hematocrit 36.9 % (39.0-53.0) Mean Corpuscular Volume 101 fL (79-100) Mean Corpuscular Hemoglobin 34 pg (25-35) Mean Corpuscular Hemoglobin Concent 34 g/dL (31-37) Red Cell Distribution Width 13.1 % (11.5-14.5) Platelet Count 161 x10^3/uL (140-400) Neutrophils (%) (Auto) 42 % (31-73) Lymphocytes (%) (Auto) 41 % (24-48) Monocytes (%) (Auto) 15 % (0-9) Eosinophils (%) (Auto) 2 % (0-3) Basophils (%) (Auto) 1 % (0-3) Neutrophils # (Auto) 1.7 x10^3uL (1.8-7.7) Lymphocytes # (Auto) 1.6 x10^3/uL (1.0-4.8) Monocytes # (Auto) 0.6 x10^3/uL (0.0-1.1) Eosinophils # (Auto) 0.1 x10^3/uL (0.0-0.7) Basophils # (Auto) 0.0 x10^3/uL (0.0-0.2) Prothrombin Time 13.3 SEC (11.7-14.0) Prothromb Time International Ratio 1.0 (0.8-1.1) Sodium Level 139 mmol/L (136-145) Potassium Level 3.9 mmol/L (3.5-5.1) Chloride Level 105 mmol/L (98-107) Carbon Dioxide Level 22 mmol/L (21-32) Anion Gap 12 (6-14) Blood Urea Nitrogen 13 mg/dL (8-26) Creatinine 1.0 mg/dL (0.7-1.3) Estimated GFR (Cockcroft-Gault) 89.6 BUN/Creatinine Ratio 13 (6-20) Glucose Level 113 mg/dL (70-99) Calcium Level 9.0 mg/dL (8.5-10.1) Magnesium Level 2.1 mg/dL (1.8-2.4) Total Bilirubin 0.3 mg/dL (0.2-1.0) Aspartate Amino Transf (AST/SGOT) 54 U/L (15-37) Alanine Aminotransferase (ALT/SGPT) 81 U/L (16-63) Alkaline Phosphatase 70 U/L (46-116) Troponin I Quantitative < 0.017 ng/mL (0.000-0.055) RA-Isr-Q-Type Natriuretic Peptide 1303 pg/mL (0-124) Total Protein 7.7 g/dL (6.4-8.2) Albumin 3.6 g/dL (3.4-5.0) Albumin/Globulin Ratio 0.9 (1.0-1.7) Urine Collection Type Unknown Urine Color Yellow Urine Clarity Clear Urine pH 5.5 Urine Specific [place] >=1.030 Urine Protein Negative mg/dL (NEG-TRACE) Urine Glucose (UA) Negative mg/dL (NEG) Urine Ketones (Stick) Negative mg/dL (NEG) Urine Blood Negative (NEG) Urine Nitrite Negative (NEG) Urine Bilirubin Small (NEG) Urine Urobilinogen Dipstick 1.0 mg/dL (0.2 mg/dL) Urine Leukocyte Esterase Negative (NEG) Urine RBC Occ /HPF (0-2) Urine WBC 1-4 /HPF (0-4) Urine Squamous Epithelial Cells Occ /LPF Urine Bacteria 0 /HPF (0-FEW) Urine Mucus Marked /LPF Vitamin B12 Level 484 pg/mL (247-911) Thyroid Stimulating Hormone (TSH) 0.674 uIU/mL (0.358-3.74) Urine Opiates Screen Neg (NEG) Urine Methadone Screen Neg (NEG) Urine Barbiturates Neg (NEG) Urine Phencyclidine Screen Neg (NEG) Urine Amphetamine/Methamphetamine Neg (NEG) Urine Benzodiazepines Screen Neg (NEG) Urine Cocaine Screen Neg (NEG) Urine Cannabinoids Screen Pos (NEG) Urine Ethyl Alcohol Neg (NEG) CAROLE FUNK MD May 03, 2018 18:09
[2018-05-03 19:53] VITALS: BP 123/78
--- NOTE | 2018-05-03 22:47 | RAD ---
DOPPLER CAROTID BILAT Clinical Indication: FACIAL DROOP. Procedure: Pulsed wave and color-flow duplex imaging was utilized to evaluate the extracranial carotid arteries. Comparison: None. Findings: RIGHT SIDE: Mild atherosclerotic plaque on stroud-scale images. Distal CCA peak systolic velocity 43 cm/sec. ICA peak systolic velocity 57 cm/sec. The right ICA/CCA ratio is 1.3. Flow within the right vertebral artery and right ECA is directed antegrade. LEFT SIDE: Mild atherosclerotic plaque on stroud-scale images. Distal CCA peak systolic velocity 51 cm/sec. ICA peak systolic velocity 102 cm/sec. The left ICA/CCA ratio is 2. Flow within the left vertebral artery and left ECA is directed antegrade. Carotid legend: CCA = common carotid artery ICA = internal carotid artery ECA = external carotid artery IMPRESSION: No hemodynamically significant stenosis. Electronically signed by: Tanner Osuna DO (05/03/2018 10:44 PM) [facility]
[2018-05-03 23:18] VITALS: BP 129/78
[2018-05-04 03:37] VITALS: BP 120/84
[2018-05-04 06:33] LABS: CHOLESTEROL/HDL RATIO 3.3
[2018-05-04 07:09] VITALS: BP 143/91
[2018-05-04] MEDS: ALBUTEROL SULFATE 2.5 MG/3 ML NEBU. NEB SCH ×4 (07:19→21:46)
[2018-05-04] MEDS: BUDESONIDE 0.5 MG/2 ML NEBU. NEB SCH ×2 (07:19→21:46)
[2018-05-04] MEDS: FAMOTIDINE 20 MG TABLET. PO SCH ×2 (08:08→20:12)
[2018-05-04] MEDS: ASPIRIN ENTERIC COATED 325 MG TABLET.DR. PO SCH (08:08)
--- NOTE | 2018-05-04 09:12 | PDOC ---
PROGRESS NOTES History of Present Illness History of Present Illness Assessment/Plan Assessment/Plan Left facial droop, left-sided arm tingling numbness, left cold feet-out of TPA window -Rule out acute CVA right side- Check CT head, MRI probable component of chronic microvascular ischemic disease and also old lacunar infarcts Third and lateral ventriculomegaly is greater than previously, could be due to progression of supratentorial involutional change although difficult to exclude component of communicating hydrocephalus. THC ABUSE Aspirin if CT head is negative neurology following Admit to 6 floor History of CABG 1992 History of back surgery 2016 History of prostate cancer, chronic Accelerated hypertension POA 05/04 still unsteady at times with gait personally reviewed mri head images, note new cva areas Plan: Carotid A US + Doppler. Echo + Bubble study. pending Fasting lipid panel in a.m. CT head, MRI if CT is negative, aspirin if CT head negative, control blood pressure, neurology consult, pending permissive hTN Vitals Vitals Vital Signs Date Time Temp Pulse Resp B/P (MAP) Pulse Ox O2 Delivery O2 Flow Rate FiO2 05/04/18 08:10 Room Air 05/04/18 07:20 99 05/04/18 07:09 97.8 80 17 143/91 (108) 97.8 Physical Exam General: Alert, Oriented X3, Cooperative, No acute distress Abdomen: Normal bowel sounds, Soft, No tenderness, No hepatosplenomegaly, No masses Extremities: No clubbing, No cyanosis, No edema, Normal pulses, No tenderness/ swelling Skin: No rashes, No breakdown, No significant lesion Labs LABS Ambulation Comments * No loss of balance when walking with narrow base of support. Pt uses cane very close to right foot. I demonstrated and recommended he move the cane out away from his foot while walking. pt agreed. Pt states is now back to normal and has no new deficits. He reports that the tingling in his arm is gone and is walking fine with no new weakness. Clinical Presentation * Stable Evaluation Complexity Level * Low Complexity Pt/caregiver agrees with plan of care/goals * Yes Patient condition at conclusion of therapy * Pt in chair * Call light in reach * Phone in reach * PtIn no apparent distress * Pt denies further needs No Further Skilled P.T. Intervention Required * Eval only-No PT Needs Discharge Recommendations Comparison: May 24, 2008 Findings: There is motion degradation. There is no evidence of recent infarct. There is mild to moderate lateral ventriculomegaly and third ventriculomegaly greater than previously. There is generalized supratentorial atrophy. There has been progression of mild to moderate T2 and FLAIR hyperintense abnormality of the supratentorial periventricular white matter bilaterally, also some involvement of the deep white matter. Mild T2 and FLAIR hyperintense signal abnormality of the lorena is also greater. There are again old lacunar infarcts left thalamus and basal ganglia, also small focus of the right basal ganglia probably new in interval. There is a small focus of old microhemorrhage of the central lorena. There is increased severe right maxillary sinus mucosal thickening, residual moderate to severe left maxillary sinus mucosal thickening overall decreased. There has been lens surgery on the left. Impression: 1. There is no evidence of recent infarct. Compared with 2009 exam, there has been progression of T2 and FLAIR hyperintense signal abnormality of the supratentorial parenchyma and lorena, probable component of chronic microvascular ischemic disease and also old lacunar infarcts as stated. Third and lateral ventriculomegaly is greater than previously, could be due to progression of supratentorial involutional change although difficult to exclude component of communicating hydrocephalus. 2. There is paranasal sinus mucosal thickening as stated greatest of the right maxillary sinus. Electronically signed by: Juan Santana MD (05/03/2018 3:13 PM) [id number] Laboratory Tests Test 05/03/18 12:25 05/03/18 13:00 05/04/18 04:55 Vitamin B12 Level 484 pg/mL (247-911) Thyroid Stimulating Hormone (TSH) 0.674 uIU/mL (0.358-3.74) Urine Opiates Screen Neg (NEG) Urine Methadone Screen Neg (NEG) Urine Barbiturates Neg (NEG) Urine Phencyclidine Screen Neg (NEG) Urine Amphetamine/Methamphetamine Neg (NEG) Urine Benzodiazepines Screen Neg (NEG) Urine Cocaine Screen Neg (NEG) Urine Cannabinoids Screen Pos (NEG) Urine Ethyl Alcohol Neg (NEG) Triglycerides Level 96 mg/dL (0-150) Cholesterol Level 126 mg/dL (0-200) LDL Cholesterol, Calculated 69 mg/dL (0-100) VLDL Cholesterol, Calculated 19 mg/dL (0-40) Non-HDL Cholesterol Calculated 88 mg/dL (0-129) HDL Cholesterol 38 mg/dL (40-60) Cholesterol/HDL Ratio 3.3 Assessment and Plan Assessmemt and Plan Problems Medical Problems: (1) Weakness Status: Acute Comment Review of Relevant I have reviewed the following items joan (where applicable) has been applied. Labs Laboratory Tests Test 05/02/18 18:00 05/02/18 19:19 05/03/18 12:25 05/03/18 13:00 White Blood Count 4.0 x10^3/uL (4.0-11.0) Red Blood Count 3.67 x10^6/uL (4.30-5.70) Hemoglobin 12.6 g/dL (13.0-17.5) Hematocrit 36.9 % (39.0-53.0) Mean Corpuscular Volume 101 fL (79-100) Mean Corpuscular Hemoglobin 34 pg (25-35) Mean Corpuscular Hemoglobin Concent 34 g/dL (31-37) Red Cell Distribution Width 13.1 % (11.5-14.5) Platelet Count 161 x10^3/uL (140-400) Neutrophils (%) (Auto) 42 % (31-73) Lymphocytes (%) (Auto) 41 % (24-48) Monocytes (%) (Auto) 15 % (0-9) Eosinophils (%) (Auto) 2 % (0-3) Basophils (%) (Auto) 1 % (0-3) Neutrophils # (Auto) 1.7 x10^3uL (1.8-7.7) Lymphocytes # (Auto) 1.6 x10^3/uL (1.0-4.8) Monocytes # (Auto) 0.6 x10^3/uL (0.0-1.1) Eosinophils # (Auto) 0.1 x10^3/uL (0.0-0.7) Basophils # (Auto) 0.0 x10^3/uL (0.0-0.2) Prothrombin Time 13.3 SEC (11.7-14.0) Prothromb Time International Ratio 1.0 (0.8-1.1) Sodium Level 139 mmol/L (136-145) Potassium Level 3.9 mmol/L (3.5-5.1) Chloride Level 105 mmol/L (98-107) Carbon Dioxide Level 22 mmol/L (21-32) Anion Gap 12 (6-14) Blood Urea Nitrogen 13 mg/dL (8-26) Creatinine 1.0 mg/dL (0.7-1.3) Estimated GFR (Cockcroft-Gault) 89.6 BUN/Creatinine Ratio 13 (6-20) Glucose Level 113 mg/dL (70-99) Calcium Level 9.0 mg/dL (8.5-10.1) Magnesium Level 2.1 mg/dL (1.8-2.4) Total Bilirubin 0.3 mg/dL (0.2-1.0) Aspartate Amino Transf (AST/SGOT) 54 U/L (15-37) Alanine Aminotransferase (ALT/SGPT) 81 U/L (16-63) Alkaline Phosphatase 70 U/L (46-116) Troponin I Quantitative < 0.017 ng/mL (0.000-0.055) OM-Tpj-L-Type Natriuretic Peptide 1303 pg/mL (0-124) Total Protein 7.7 g/dL (6.4-8.2) Albumin 3.6 g/dL (3.4-5.0) Albumin/Globulin Ratio 0.9 (1.0-1.7) Urine Collection Type Unknown Urine Color Yellow Urine Clarity Clear Urine pH 5.5 Urine Specific [place] >=1.030 Urine Protein Negative mg/dL (NEG-TRACE) Urine Glucose (UA) Negative mg/dL (NEG) Urine Ketones (Stick) Negative mg/dL (NEG) Urine Blood Negative (NEG) Urine Nitrite Negative (NEG) Urine Bilirubin Small (NEG) Urine Urobilinogen Dipstick 1.0 mg/dL (0.2 mg/dL) Urine Leukocyte Esterase Negative (NEG) Urine RBC Occ /HPF (0-2) Urine WBC 1-4 /HPF (0-4) Urine Squamous Epithelial Cells Occ /LPF Urine Bacteria 0 /HPF (0-FEW) Urine Mucus Marked /LPF Vitamin B12 Level 484 pg/mL (247-911) Thyroid Stimulating Hormone (TSH) 0.674 uIU/mL (0.358-3.74) Urine Opiates Screen Neg (NEG) Urine Methadone Screen Neg (NEG) Urine Barbiturates Neg (NEG) Urine Phencyclidine Screen Neg (NEG) Urine Amphetamine/Methamphetamine Neg (NEG) Urine Benzodiazepines Screen Neg (NEG) Urine Cocaine Screen Neg (NEG) Urine Cannabinoids Screen Pos (NEG) Urine Ethyl Alcohol Neg (NEG) Test 05/04/18 04:55 Triglycerides Level 96 mg/dL (0-150) Cholesterol Level 126 mg/dL (0-200) LDL Cholesterol, Calculated 69 mg/dL (0-100) VLDL Cholesterol, Calculated 19 mg/dL (0-40) Non-HDL Cholesterol Calculated 88 mg/dL (0-129) HDL Cholesterol 38 mg/dL (40-60) Cholesterol/HDL Ratio 3.3 Laboratory Tests Test 05/03/18 12:25 05/03/18 13:00 05/04/18 04:55 Vitamin B12 Level 484 pg/mL (247-911) Thyroid Stimulating Hormone (TSH) 0.674 uIU/mL (0.358-3.74) Urine Opiates Screen Neg (NEG) Urine Methadone Screen Neg (NEG) Urine Barbiturates Neg (NEG) Urine Phencyclidine Screen Neg (NEG) Urine Amphetamine/Methamphetamine Neg (NEG) Urine Benzodiazepines Screen Neg (NEG) Urine Cocaine Screen Neg (NEG) Urine Cannabinoids Screen Pos (NEG) Urine Ethyl Alcohol Neg (NEG) Triglycerides Level 96 mg/dL (0-150) Cholesterol Level 126 mg/dL (0-200) LDL Cholesterol, Calculated 69 mg/dL (0-100) VLDL Cholesterol, Calculated 19 mg/dL (0-40) Non-HDL Cholesterol Calculated 88 mg/dL (0-129) HDL Cholesterol 38 mg/dL (40-60) Cholesterol/HDL Ratio 3.3 Medications Current Medications Labetalol HCl (Normodyne Iv Push) 10 mg PRN Q2HR PRN IVP HYPERTENSION, SEE COMMENTS; Start 05/02/18 at 19:30 Tramadol HCl (Ultram) 50 mg PRN Q6HRS PRN PO PAIN; Start 05/02/18 at 19:30 Promethazine HCl (Phenergan) 12.5 mg PRN Q6HRS PRN PO NAUSEA/VOMITING; Start at 19:30 Famotidine (Pepcid) 20 mg BID PO Last administered on 05/04/18at 08:08; Start at 21:00 Nicotine (Nicoderm Cq 21mg) 1 patch PRN DAILY PRN TD SMOKING CESSATION; Start 05/02/18 at 19:30 Aspirin (Children'S Aspirin) 324 mg 1X ONCE PO Last administered on 05/02/18at 20:20; Start 05/02/18 at 20:15; Stop 05/02/18 at 20:16; Status DC Aspirin (Ecotrin) 325 mg DAILYWBKFT PO Last administered on 05/04/18at 08:08; Start 05/03/18 at 08:00 Tramadol HCl (Ultram) 50 mg PRN Q6HRS PRN PO PAIN; Start 05/03/18 at 01:15; Status Cancel Non-Formulary Medication (Fluticasone/ Salmeterol (Advair 500-50 Diskus)) 1 puff BID IH ; Start 05/03/18 at 09:00; Status UNV Budesonide (Pulmicort) 0.5 mg RTBID NEB Last administered on 05/04/18at 07:19; Start 05/03/18 at 08:00 Albuterol Sulfate (Ventolin Neb Soln) 2.5 mg RTQID NEB Last administered on at 07:19; Start 05/03/18 at 08:00 Active Scripts Active Reported Promethazine-Codeine Syrup (Promethazine Hcl/Codeine) 118 Ml Syrup 20 Ml PO DAILY Advair 500-50 Diskus (Fluticasone/Salmeterol) 1 Each Disk.w.dev 1 Puff IH BID Aspirin Ec (Aspirin) 325 Mg Tablet.dr 1 Tab PO DAILY Tramadol Hcl 50 Mg Tablet 50 Mg PO Q6HRS PRN Vitals/I & O Vital Sign - Last 24 Hours 05/03/18 05/03/18 05/03/18 05/03/18 11:09 11:13 14:57 15:01 Temp 97.9 97.6 97.9 97.6 Pulse 86 81 Resp 18 18 B/P (MAP) 138/92 (107) 133/81 (98) Pulse Ox 98 96 96 O2 Delivery Room Air Room Air Room Air Room Air 05/03/18 05/03/18 05/03/18 05/03/18 19:33 19:53 20:00 23:18 Temp 98.1 98.4 98.1 98.4 Pulse 84 83 Resp 18 18 B/P (MAP) 123/78 (93) 129/78 (95) Pulse Ox 97 97 97 O2 Delivery Room Air Room Air Room Air Room Air 05/04/18 05/04/18 05/04/18 05/04/18 03:37 07:09 07:20 08:10 Temp 98.5 97.8 98.5 97.8 Pulse 81 80 Resp 18 17 B/P (MAP) 120/84 (96) 143/91 (108) Pulse Ox 97 100 99 O2 Delivery Room Air Room Air Room Air Room Air Intake and Output 05/03/18 05/03/18 05/04/18 15:00 23:00 07:00 Intake Total 480 ml 240 ml 280 ml Output Total 150 ml 200 ml Balance 480 ml 90 ml 80 ml AYE ROJAS MD May 04, 2018 09:12
[2018-05-04 10:48] VITALS: BP 137/81
--- NOTE | 2018-05-04 14:30 | CARD ---
MR#: [id number] Date of Study: 05/04/2018 Ordering Physician: CAROLE FUNK, Referring Physician: TIMOTHY FRANCE Tech: Jessie Alvarado [facility] APPROVED REPORT EXAM: Two-dimensional and M-mode echocardiogram with Doppler and color Doppler. Other Information Quality : GoodHR: 80bpm Rhythm : NSR INDICATION CVA/TIA 2D DIMENSIONS RVDd3.4 (2.9-3.5cm)Left Atrium(2D)4.4 (1.6-4.0cm) IVSd0.7 (0.7-1.1cm)Aortic Root(2D)3.4 (2.0-3.7cm) LVDd6.1 (3.9-5.9cm)LVOT Diameter2.3 (1.8-2.4cm) PWd0.9 (0.7-1.1cm)LVDs5.5 (2.5-4.0cm) FS (%) 10.7 %SV43.1 ml Aortic Valve AoV Peak Marcel.125.8cm/sAoV VTI20.7cm AO Peak GR.6.3mmHgLVOT Peak Marcel.91.1cm/s AO Mean GR.3mmHgAVA (VMAX)3.07cm2 IDA (VTI)3.00cm2 Mitral Valve MV E Oexxyfbk22.1cm/sMV DECEL VOKJ687mu MV A Ggmqdwfr52.1cm/sE/A Ratio0.5 MV A Jpnjnzyk45fw Pulmonary Valve PV Peak Rqwodjhy989.7cm/s Tricuspid Valve TR P. Ijfpnjbw429zf/sRAP BKTOADNC6smPg TR Peak Gr.38tyEgSDBQ77phRf LEFT VENTRICLE The Left Ventricle is moderately dilated. There is normal left ventricular wall thickness. The ejecti on fraction is severely decreased. The Ejection Fraction is 20-25%. There is global hypokinesis of th e left ventricle. Transmitral Doppler flow pattern is abnormal. RIGHT VENTRICLE The right ventricle is normal size. There is normal right ventricular wall thickness. The right ventr icular systolic function is normal. ATRIA The left atrium is mildly dilated. The right atrium size is normal. The interatrial septum is intact with no evidence for an atrial septal defect or patent foramen ovale as noted on 2-D or Doppler imagi ng. Injection of bubbles documented no interatrial shunt. AORTIC VALVE The aortic valve is normal in structure and function. The aortic valve is trileaflet. Doppler and Col or Flow revealed no significant aortic regurgitation. There is no significant aortic valvular stenosi s. MITRAL VALVE The mitral valve is thickened but opens well. There is no evidence of mitral valve prolapse. There is no mitral valve stenosis. Doppler and Color-flow revealed mild mitral regurgitation. TRICUSPID VALVE The tricuspid valve is normal in structure and function. Doppler and Color Flow revealed mild tricusp id regurgitation. The PA pressure was estimated at 21 mmHg. There is no tricuspid valve prolapse or v egetation. There is no tricuspid valve stenosis. PULMONIC VALVE The pulmonary valve is normal in structure and function. Doppler and Color Flow revealed no pulmonic valvular regurgitation. There is no pulmonic valvular stenosis. GREAT VESSELS The aortic root is normal in size. The ascending aorta is normal in size. The IVC is normal in size a nd collapses >50% with inspiration. PERICARDIAL EFFUSION There is no evidence of significant pericardial effusion. Critical Notification Critical Value: No <Conclusion> The Left Ventricle is moderately dilated. The ejection fraction is severely decreased. The Ejection Fraction is 20-25%. There is global hypokinesis of the left ventricle. The interatrial septum is intact with no evidence for an atrial septal defect or patent foramen ovale as noted on 2-D or Doppler imaging. Injection of bubbles documented no interatrial shunt. There is no significant aortic valvular stenosis. Doppler and Color Flow revealed no significant aortic regurgitation. Doppler and Color-flow revealed mild mitral regurgitation. Doppler and Color Flow revealed mild tricuspid regurgitation. The PA pressure was estimated at 21 mmHg. Signed by : Kai Renner MD Electronically Approved : 05/04/2018 14:29:13
[2018-05-04 14:52] VITALS: BP 109/71
--- NOTE | 2018-05-04 17:48 | PDOC2 ---
CARDIAC CONSULT DATE OF CONSULT Date of Consult DATE: 05/04/18 TIME: 17:00 REASON FOR CONSULT Reason for Consult: cardiomyopathy REFERRING PHYSICIAN Referring Physician: Fullbright SOURCE Source: Chart review, Patient HISTORY OF PRESENT ILLNESS HISTORY OF PRESENT ILLNESS This is a pleasant 68 yo male admitted for complains of left arm shooting pain. He present with dizziness and lightheadedness and weakness which he could not recall. No complains of SOA, no CP. Denies any leg edema. He does have arm tremors when moving but not with rest. Positive for past CVA with some weakness to his LLE. No known hx of CAD. No palpitations or passing out. He takes 3 medications. Denies having any heart procedures.Denies any VTE, arrhythmias in the past. Report that he drinks about 4 shot of kim with 40 oz of beer with it and does this 3 times weekly. Upon neurology evaluation he has been noted with LUE numbness/facial droop which is now resolved and suspected with small subacute right BG infarct. He is a poor historian and actually told me that he does not have heart procedure done in the past but notable for sternotomy indicating CABG in the past. It is unknown as far as his cardiac hx as no family is available and when his baseline heart function is. . with TTE he was noted with cardiomyopathy and does not have any cardiac symptoms. PAST MEDICAL HISTORY Cardiovascular: CAD, HTN Pulmonary: COPD CENTRAL NERVOUS SYSTEM: CVA GI: GERD Heme/Onc: No pertinent hx Musculoskeletal: Osteoarthritis Infectious disease: No pertinent hx Renal/: Prostate Ca. Endocrine: No pertinent hx Dermatology: No pertinent hx PAST SURGICAL HISTORY Past Surgical History: CABG, Other (lumbar fusion) FAMILY HISTORY Family History: Heart Disease SOCIAL HISTORY Smoke: <1 pack per day ALCOHOL: heavy Drugs: None Lives: with Family ALLERGIES ALLERGIES: Coded Allergies: No Known Drug Allergies (Unverified , 05/02/18) ROS Review of System limited, poor historian PHYSICAL EXAM General: Alert, Oriented X3, Cooperative, No acute distress HEENT: Atraumatic, Mucous membr. moist/pink Lungs: Clear to auscultation, Normal air movement Heart: Regular rate (SR) Abdomen: Soft, No tenderness Extremities: No cyanosis, No edema Skin: No breakdown, No significant lesion Neuro: Normal speech, Sensation intact Psych/Mental Status: Mental status NL, Mood NL MUSCULOSKELETAL: Osteoarthritic changes both hands VITALS VITALS Vital Signs Date Time Temp Pulse Resp B/P (MAP) Pulse Ox O2 Delivery O2 Flow Rate FiO2 05/04/18 15:28 Room Air 05/04/18 14:52 98.0 93 18 109/71 (84) 99 98.0 LABS Lab: Laboratory Tests Test 05/04/18 04:55 Triglycerides Level 96 mg/dL (0-150) Cholesterol Level 126 mg/dL (0-200) LDL Cholesterol, Calculated 69 mg/dL (0-100) VLDL Cholesterol, Calculated 19 mg/dL (0-40) Non-HDL Cholesterol Calculated 88 mg/dL (0-129) HDL Cholesterol 38 mg/dL (40-60) Cholesterol/HDL Ratio 3.3 ECHOCARDIOGRAM ECHOCARDIOGRAM <Conclusion> The Left Ventricle is moderately dilated. The ejection fraction is severely decreased. The Ejection Fraction is 20-25%. There is global hypokinesis of the left ventricle. The interatrial septum is intact with no evidence for an atrial septal defect or patent foramen ovale as noted on 2-D or Doppler imaging. Injection of bubbles documented no interatrial shunt. There is no significant aortic valvular stenosis. Doppler and Color Flow revealed no significant aortic regurgitation. Doppler and Color-flow revealed mild mitral regurgitation. Doppler and Color Flow revealed mild tricuspid regurgitation. The PA pressure was estimated at 21 mmHg. DATE: 05/04/18 1429 ASSESSMENT/PLAN ASSESSMENT/PLAN 1. Small Subacute right BG infarct: neurology following. pas hx of CVA. 2. Cardiomyopathy: new? EF at 20-25%. Clinically compensated 3. CAD; past CABG. details unclear. No CP nor SOA. 4. Likely dementia: poor recall. 5. LBBB likely chronic 6. HTN: controlled 7. HLP; lipids on goal 8. Chronic alcoholism: at least 4 shots of kim with 40 oz of beer at least 3 x a week 9. Tobaccoism Recommendations 1. discussed with staff. Will need to further inquire with spouse or family member in regards to his cardiac history and obtain old records 2. He will need BB and ACEi moving forward and will start tomorrow after further information obtained. BP is currently well controlled and no arrhythmias 3. ASA and statin 4. Further ischemic workup warranted pending records. 5. 2L FR. daily wt. I & O. BMP and Mg in JUVENAL LLANOS APRN May 04, 2018 17:48
--- NOTE | 2018-05-04 19:07 | PDOC ---
PROGRESS NOTES Assessment Assessment Small subacute right BG infarct likely per clinical symptoms combined MRI findings. Metabolic encephalopathy. Left side facial drooping x 1-2 days before admission.. Left UE numbness x 2 days before admission.. Dizziness x 2 days before admission. Light headiness x 2 days before admission. CHF EF 20-25%. HTN. Old lorena microhemorrhage. 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 CAD s/p CABG. Cannabinoid positive. RECOMMENDATIONS/PLAN: ASA 325 mg daily. Lipitor HS. Consulted Cardiology. Treat medical diseases. Carotid A US + Doppler: No high grade stenosis. Echo + Bubble study: EF 20-25%. Fasting lipids: WNL. History of Present Illness 68-year-old male with above medical diseases and old stroke developed symptoms of dizziness, light headiness, left side UE numbness and tingling about 2 days ago and his symptoms persistent. He was noted left side facial drooping and was brought in by concerned son, lives at home, to the ER of [facility] for further evaluation. Past Medical History Cardiovascular: CAD Pulmonary: Bronchitis, COPD GI: GERD Neurology: Olc stroke. Past Surgical History CABG, Other (back sx) Family History Hypertension Social History Smoke: <1 pack per day ALCOHOL: Denied. Drugs: None, but test positive for cannabinoids. ALLERGY: Unknown MEDICATIONS: Refer to MAR REVIEW OF SYSTEMS: Constitutional: No malnutrition, weight loss, cachexia. Head: No traumatic brain or head injury. Skin: No edema, or rash. Ear: No infection. Eyes: No vision loss or color blindness. Nose: No bleeding or purulent discharges. Hearing: Hearing decrease. Neck: No injury. Cardiac:CAD, s/p CABG, HTN, HLD. Pulmonary: Smoking. GI: No GI ulcer, GI bleeding. Urinary/genital: No dysuria, incontinence, urinary retention. Endocrinologic: No cousin face, craniofacial dysmorphism, polydactyly. Skeletomuscular: Generalized weakness. Neurological: see HP. Psychiatric: Drug use/abuse. Otherwise, not -zadum review of systems. PHYSICAL EXAMINATION: General appearance is in subacute distress. HEENT: Normocephalic and nontraumatic. Eyes, nose, ears, and throat are unremarkable. Neck is supple. No lymphadenopathy. No crepitus. Cardiovascular: S1, S2, regular rate and rhythm. Pulmonary: Clear to auscultation bilaterally. Abdomen: Bowel sounds are positive. Extremities: No rash, lesions, or edema. No restriction of range of motion NEUROLOGICAL EXAMINATION: Awake. Not oriented to time, but knew place and person. PERRL. EOMI. CN: no focal findings. Muscle tone: Fluctuated. Muscle strength: 4+ DTR: 2 Plantar reflex: Neutral response bilaterally Gait: Able to walk. Sensory exam: no abnormal findings. No cerebellar signs elicited. F-T-N test fine. Objective Objective Vital Signs Date Time Temp Pulse Resp B/P (MAP) Pulse Ox O2 Delivery O2 Flow Rate FiO2 05/04/18 15:28 Room Air 05/04/18 14:52 98.0 93 18 109/71 (84) 99 98.0 Intake and Output 05/04/18 07:00 Intake Total 1000 ml Output Total 350 ml Balance 650 ml Intake Oral 1000 ml Output Urine Total 350 ml # Voids 3 Vitals Signs Vitals VS - Last 72 Hours, by Label Date Time Temp Pulse Resp B/P (MAP) Pulse Ox O2 Delivery O2 Flow Rate FiO2 05/04/18 15:28 Room Air 05/04/18 14:52 98.0 93 18 109/71 (84) 99 Room Air 98.0 05/04/18 10:55 Room Air 05/04/18 10:48 98.5 87 18 137/81 (99) 100 Room Air 98.5 05/04/18 08:10 Room Air 05/04/18 07:20 99 Room Air 05/04/18 07:09 97.8 80 17 143/91 (108) 100 Room Air 97.8 05/04/18 03:37 98.5 81 18 120/84 (96) 97 Room Air 98.5 05/03/18 23:18 98.4 83 18 129/78 (95) 97 Room Air 98.4 05/03/18 20:00 Room Air 05/03/18 19:53 98.1 84 18 123/78 (93) 97 Room Air 98.1 05/03/18 19:33 97 Room Air 05/03/18 15:01 97.6 81 18 133/81 (98) 96 Room Air 97.6 05/03/18 14:57 96 Room Air 05/03/18 11:13 Room Air 05/03/18 11:09 97.9 86 18 138/92 (107) 98 Room Air 97.9 05/03/18 07:43 Room Air 05/03/18 07:15 98.0 76 20 132/79 (96) 99 Room Air 98.0 Laboratory Laboratory Laboratory Tests Test 05/04/18 04:55 Triglycerides Level 96 mg/dL (0-150) Cholesterol Level 126 mg/dL (0-200) LDL Cholesterol, Calculated 69 mg/dL (0-100) VLDL Cholesterol, Calculated 19 mg/dL (0-40) Non-HDL Cholesterol Calculated 88 mg/dL (0-129) HDL Cholesterol 38 mg/dL (40-60) Cholesterol/HDL Ratio 3.3 Comment Review of Relevant I have reviewed the following items joan (where applicable) has been applied. CAROLE FUNK MD May 04, 2018 19:07
[2018-05-04 19:45] VITALS: BP 145/78
[2018-05-04 23:30] VITALS: BP 131/92
[2018-05-05 03:30] VITALS: BP 130/79
[2018-05-05 04:37] LABS: BASO % 0 % (0-3); EOS % 1 % (0-3); HEMATOCRIT 35.1 % (39.0-53.0); HEMOGLOBIN 11.9 g/dL (13.0-17.5); LYMPH # 1.3 x10^3/uL (1.0-4.8); LYMPH % 42 % (24-48); MEAN CORPUSCULAR HEMOGLOBIN 34 pg (25-35); MEAN CORPUSCULAR HGB CONC 34 g/dL (31-37); MEAN CORPUSCULAR VOLUME 100 fL (79-100); MONO # 0.6 x10^3/uL (0.0-1.1); MONO % 20 % (0-9); NEUT # 1.2 x10^3uL (1.8-7.7); NEUT % 37 % (31-73); PLATELET COUNT 142 x10^3/uL (140-400); RED CELL DISTRIBUTION WIDTH 13.3 % (11.5-14.5); WHITE BLOOD COUNT 3.2 x10^3/uL (4.0-11.0)
[2018-05-05 05:10] LABS: CALCIUM 8.8 mg/dL (8.5-10.1); CREATININE 0.9 mg/dL (0.7-1.3); GFR 101.2; MAGNESIUM 1.8 mg/dL (1.8-2.4); POTASSIUM 3.9 mmol/L (3.5-5.1)
--- NOTE | 2018-05-05 06:44 | NUR ---
Pt rested during the noc with eyes closed. Pt with noted elevated HR when ambulating in room. Pt HR 130's noted. Pt asymptomatic. Pt instructed of NPO after midnight for possible procedure and pt states he has had procedure done before and does not want to perform again. Pt did remain npo at this time until further notice. No orders noted at this time for procedure.
[2018-05-05 07:20] VITALS: BP 158/78
[2018-05-05 07:42] LABS: % EOS 2 % (0-5); % LYMPHS 46 % (24-48); % MONOS 16 % (0-10); % SEGS 36 % (35-66)
[2018-05-05 07:43] LABS: PLT ESTIMATE ADEQUATE (ADEQUATE)
[2018-05-05] MEDS: ALBUTEROL SULFATE 2.5 MG/3 ML NEBU. NEB SCH ×3 (07:51→14:57)
[2018-05-05] MEDS: BUDESONIDE 0.5 MG/2 ML NEBU. NEB SCH (07:52)
--- NOTE | 2018-05-05 08:31 | NUR ---
SW following pt for anticipated dc needs. Chart reviewed. Pt lives at home alone. Pt was evaluated by PT/OT and no skilled needs indicated at this time. SW will continue to assess needs.
[2018-05-05] MEDS: FAMOTIDINE 20 MG TABLET. PO SCH (09:05)
[2018-05-05] MEDS: ASPIRIN ENTERIC COATED 325 MG TABLET.DR. PO SCH (09:05)
--- NOTE | 2018-05-05 10:05 | NUR ---
Message left for pts asking to verify home medications. Waiting for return call. Pt was kept NPO after midnight per cardiology request. At the beginning of my shift, pt told me that he was not going to agree to any procedures today. I asked him to wait to see the doctor but the patient took it upon himself to drink coffee. I notified cardiology. Diet resumed. Release of info sent to Dr Wilfred [facility]. Office was called by reverse unit operator and she was notified that he was seen in that office once but never followed up. Waiting for records.
--- NOTE | 2018-05-05 10:42 | PDOC ---
PROGRESS NOTES History of Present Illness History of Present Illness Assessment/Plan Assessment/Plan Left facial droop, left-sided arm tingling numbness, left cold feet-out of TPA window -Rule out acute CVA right side- Check CT head, MRI probable component of chronic microvascular ischemic disease and also old lacunar infarcts Third and lateral ventriculomegaly is greater than previously, could be due to progression of supratentorial involutional change although difficult to exclude component of communicating hydrocephalus. THC ABUSE ALCOHOL ABUSE Aspirin if CT head is negative neurology following History of CABG 1992 History of back surgery 2015 History of prostate cancer, chronic Accelerated hypertension POA 05/04 still unsteady at times with gait personally reviewed mri head images, note new cva areas 05/05 pt is very stubborn and currently pt wants to go home. Plan: Carotid A US + Doppler. Echo + Bubble study. pending Fasting lipid panel in a.m. CT head, MRI if CT is negative, aspirin if CT head negative, control blood pressure, neurology consult, pending permissive hTN, BP MEDS ADDED 05/05 Vitals Vitals Vital Signs Date Time Temp Pulse Resp B/P (MAP) Pulse Ox O2 Delivery O2 Flow Rate FiO2 05/05/18 07:53 Room Air 05/05/18 07:20 98.2 81 18 158/78 (104) 99 98.2 Physical Exam General: Alert, Oriented X3, Cooperative, No acute distress Heart: Regular rate (SR), Normal S1, Normal S2 Lungs: Clear Abdomen: Normal bowel sounds, Soft, No tenderness, No hepatosplenomegaly Extremities: No cyanosis, No edema Skin: No breakdown, No significant lesion Labs LABS Laboratory Tests Test 05/05/18 04:05 White Blood Count 3.2 x10^3/uL (4.0-11.0) Red Blood Count 3.50 x10^6/uL (4.30-5.70) Hemoglobin 11.9 g/dL (13.0-17.5) Hematocrit 35.1 % (39.0-53.0) Mean Corpuscular Volume 100 fL (79-100) Mean Corpuscular Hemoglobin 34 pg (25-35) Mean Corpuscular Hemoglobin Concent 34 g/dL (31-37) Red Cell Distribution Width 13.3 % (11.5-14.5) Platelet Count 142 x10^3/uL (140-400) Neutrophils (%) (Auto) 37 % (31-73) Lymphocytes (%) (Auto) 42 % (24-48) Monocytes (%) (Auto) 20 % (0-9) Eosinophils (%) (Auto) 1 % (0-3) Basophils (%) (Auto) 0 % (0-3) Neutrophils # (Auto) 1.2 x10^3uL (1.8-7.7) Lymphocytes # (Auto) 1.3 x10^3/uL (1.0-4.8) Monocytes # (Auto) 0.6 x10^3/uL (0.0-1.1) Eosinophils # (Auto) 0.0 x10^3/uL (0.0-0.7) Basophils # (Auto) 0.0 x10^3/uL (0.0-0.2) Segmented Neutrophils % 36 % (35-66) Lymphocytes % 46 % (24-48) Monocytes % 16 % (0-10) Eosinophils % 2 % (0-5) Platelet Estimate Adequate (ADEQUATE) Sodium Level 137 mmol/L (136-145) Potassium Level 3.9 mmol/L (3.5-5.1) Chloride Level 104 mmol/L (98-107) Carbon Dioxide Level 20 mmol/L (21-32) Anion Gap 13 (6-14) Blood Urea Nitrogen 11 mg/dL (8-26) Creatinine 0.9 mg/dL (0.7-1.3) Estimated GFR (Cockcroft-Gault) 101.2 Glucose Level 95 mg/dL (70-99) Calcium Level 8.8 mg/dL (8.5-10.1) Magnesium Level 1.8 mg/dL (1.8-2.4) Assessment and Plan Assessmemt and Plan Problems Medical Problems: (1) Weakness Status: Acute Comment Review of Relevant I have reviewed the following items joan (where applicable) has been applied. Labs Laboratory Tests Test 05/03/18 12:25 05/03/18 13:00 05/04/18 04:55 05/05/18 04:05 Vitamin B12 Level 484 pg/mL (247-911) Thyroid Stimulating Hormone (TSH) 0.674 uIU/mL (0.358-3.74) Urine Opiates Screen Neg (NEG) Urine Methadone Screen Neg (NEG) Urine Barbiturates Neg (NEG) Urine Phencyclidine Screen Neg (NEG) Urine Amphetamine/Methamphetamine Neg (NEG) Urine Benzodiazepines Screen Neg (NEG) Urine Cocaine Screen Neg (NEG) Urine Cannabinoids Screen Pos (NEG) Urine Ethyl Alcohol Neg (NEG) Triglycerides Level 96 mg/dL (0-150) Cholesterol Level 126 mg/dL (0-200) LDL Cholesterol, Calculated 69 mg/dL (0-100) VLDL Cholesterol, Calculated 19 mg/dL (0-40) Non-HDL Cholesterol Calculated 88 mg/dL (0-129) HDL Cholesterol 38 mg/dL (40-60) Cholesterol/HDL Ratio 3.3 White Blood Count 3.2 x10^3/uL (4.0-11.0) Red Blood Count 3.50 x10^6/uL (4.30-5.70) Hemoglobin 11.9 g/dL (13.0-17.5) Hematocrit 35.1 % (39.0-53.0) Mean Corpuscular Volume 100 fL (79-100) Mean Corpuscular Hemoglobin 34 pg (25-35) Mean Corpuscular Hemoglobin Concent 34 g/dL (31-37) Red Cell Distribution Width 13.3 % (11.5-14.5) Platelet Count 142 x10^3/uL (140-400) Neutrophils (%) (Auto) 37 % (31-73) Lymphocytes (%) (Auto) 42 % (24-48) Monocytes (%) (Auto) 20 % (0-9) Eosinophils (%) (Auto) 1 % (0-3) Basophils (%) (Auto) 0 % (0-3) Neutrophils # (Auto) 1.2 x10^3uL (1.8-7.7) Lymphocytes # (Auto) 1.3 x10^3/uL (1.0-4.8) Monocytes # (Auto) 0.6 x10^3/uL (0.0-1.1) Eosinophils # (Auto) 0.0 x10^3/uL (0.0-0.7) Basophils # (Auto) 0.0 x10^3/uL (0.0-0.2) Segmented Neutrophils % 36 % (35-66) Lymphocytes % 46 % (24-48) Monocytes % 16 % (0-10) Eosinophils % 2 % (0-5) Platelet Estimate Adequate (ADEQUATE) Sodium Level 137 mmol/L (136-145) Potassium Level 3.9 mmol/L (3.5-5.1) Chloride Level 104 mmol/L (98-107) Carbon Dioxide Level 20 mmol/L (21-32) Anion Gap 13 (6-14) Blood Urea Nitrogen 11 mg/dL (8-26) Creatinine 0.9 mg/dL (0.7-1.3) Estimated GFR (Cockcroft-Gault) 101.2 Glucose Level 95 mg/dL (70-99) Calcium Level 8.8 mg/dL (8.5-10.1) Magnesium Level 1.8 mg/dL (1.8-2.4) Laboratory Tests Test 05/05/18 04:05 White Blood Count 3.2 x10^3/uL (4.0-11.0) Red Blood Count 3.50 x10^6/uL (4.30-5.70) Hemoglobin 11.9 g/dL (13.0-17.5) Hematocrit 35.1 % (39.0-53.0) Mean Corpuscular Volume 100 fL (79-100) Mean Corpuscular Hemoglobin 34 pg (25-35) Mean Corpuscular Hemoglobin Concent 34 g/dL (31-37) Red Cell Distribution Width 13.3 % (11.5-14.5) Platelet Count 142 x10^3/uL (140-400) Neutrophils (%) (Auto) 37 % (31-73) Lymphocytes (%) (Auto) 42 % (24-48) Monocytes (%) (Auto) 20 % (0-9) Eosinophils (%) (Auto) 1 % (0-3) Basophils (%) (Auto) 0 % (0-3) Neutrophils # (Auto) 1.2 x10^3uL (1.8-7.7) Lymphocytes # (Auto) 1.3 x10^3/uL (1.0-4.8) Monocytes # (Auto) 0.6 x10^3/uL (0.0-1.1) Eosinophils # (Auto) 0.0 x10^3/uL (0.0-0.7) Basophils # (Auto) 0.0 x10^3/uL (0.0-0.2) Segmented Neutrophils % 36 % (35-66) Lymphocytes % 46 % (24-48) Monocytes % 16 % (0-10) Eosinophils % 2 % (0-5) Platelet Estimate Adequate (ADEQUATE) Sodium Level 137 mmol/L (136-145) Potassium Level 3.9 mmol/L (3.5-5.1) Chloride Level 104 mmol/L (98-107) Carbon Dioxide Level 20 mmol/L (21-32) Anion Gap 13 (6-14) Blood Urea Nitrogen 11 mg/dL (8-26) Creatinine 0.9 mg/dL (0.7-1.3) Estimated GFR (Cockcroft-Gault) 101.2 Glucose Level 95 mg/dL (70-99) Calcium Level 8.8 mg/dL (8.5-10.1) Magnesium Level 1.8 mg/dL (1.8-2.4) Medications Current Medications Labetalol HCl (Normodyne Iv Push) 10 mg PRN Q2HR PRN IVP HYPERTENSION, SEE COMMENTS; Start 05/02/18 at 19:30 Tramadol HCl (Ultram) 50 mg PRN Q6HRS PRN PO PAIN; Start 05/02/18 at 19:30 Promethazine HCl (Phenergan) 12.5 mg PRN Q6HRS PRN PO NAUSEA/VOMITING; Start at 19:30 Famotidine (Pepcid) 20 mg BID PO Last administered on 05/05/18at 09:05; Start at 21:00 Nicotine (Nicoderm Cq 21mg) 1 patch PRN DAILY PRN TD SMOKING CESSATION; Start 05/02/18 at 19:30 Aspirin (Children'S Aspirin) 324 mg 1X ONCE PO Last administered on 05/02/18at 20:20; Start 05/02/18 at 20:15; Stop 05/02/18 at 20:16; Status DC Aspirin (Ecotrin) 325 mg DAILYWBKFT PO Last administered on 05/05/18at 09:05; Start 05/03/18 at 08:00 Tramadol HCl (Ultram) 50 mg PRN Q6HRS PRN PO PAIN; Start 05/03/18 at 01:15; Status Cancel Non-Formulary Medication (Fluticasone/ Salmeterol (Advair 500-50 Diskus)) 1 puff BID IH ; Start 05/03/18 at 09:00; Status UNV Budesonide (Pulmicort) 0.5 mg RTBID NEB Last administered on 05/05/18at 07:52; Start 05/03/18 at 08:00 Albuterol Sulfate (Ventolin Neb Soln) 2.5 mg RTQID NEB Last administered on at 07:51; Start 05/03/18 at 08:00 Active Scripts Active Reported Promethazine-Codeine Syrup (Promethazine Hcl/Codeine) 118 Ml Syrup 20 Ml PO DAILY Advair 500-50 Diskus (Fluticasone/Salmeterol) 1 Each Disk.w.dev 1 Puff IH BID Aspirin Ec (Aspirin) 325 Mg Tablet.dr 1 Tab PO DAILY Tramadol Hcl 50 Mg Tablet 50 Mg PO Q6HRS PRN Vitals/I & O Vital Sign - Last 24 Hours 05/04/18 05/04/18 05/04/18 05/04/18 10:48 10:55 14:52 15:28 Temp 98.5 98.0 98.5 98.0 Pulse 87 93 Resp 18 18 B/P (MAP) 137/81 (99) 109/71 (84) Pulse Ox 100 99 O2 Delivery Room Air Room Air Room Air Room Air 05/04/18 05/04/18 05/04/18 05/05/18 19:45 20:00 23:30 03:30 Temp 97.7 97.9 98.0 97.7 97.9 98.0 Pulse 86 48 91 Resp 20 18 18 B/P (MAP) 145/78 (100) 131/92 (105) 130/79 (96) Pulse Ox 99 100 99 O2 Delivery Room Air Room Air Room Air Room Air 05/05/18 05/05/18 07:20 07:53 Temp 98.2 98.2 Pulse 81 Resp 18 B/P (MAP) 158/78 (104) Pulse Ox 99 O2 Delivery Room Air Room Air Intake and Output 05/04/18 05/04/18 05/05/18 14:59 22:59 06:59 Intake Total 840 ml 400 ml 0 ml Output Total 200 ml Balance 840 ml 400 ml -200 ml AYE ROJAS MD May 05, 2018 10:42
[2018-05-05 11:20] VITALS: BP 146/91
[2018-05-05] MEDS ORDERED: METOPROLOL SUCC 24HR ER 25 MG TAB.ER.24H. PO SCH (12:00)
[2018-05-05] MEDS ORDERED: LISINOPRIL 5 MG TABLET. PO SCH (12:00)
--- NOTE | 2018-05-05 12:05 | PDOC ---
CARDIO Progress Notes Date and Time Date of Service 05/05/2018 Time of Evaluation 1130 Subjective Subjective: No Chest Pain, No shortness of breath, No Palpitations Vitals Vitals Vital Signs Date Time Temp Pulse Resp B/P (MAP) Pulse Ox O2 Delivery O2 Flow Rate FiO2 05/05/18 07:53 Room Air 05/05/18 07:20 98.2 81 18 158/78 (104) 99 98.2 Weight Weight [ ] Input and Output Intake and Output Intake and Output 05/05/18 06:59 Intake Total 1240 ml Output Total 200 ml Balance 1040 ml Intake Oral 1240 ml Output Urine Total 200 ml # Voids 4 Laboratory Labs Laboratory Tests Test 05/05/18 04:05 White Blood Count 3.2 x10^3/uL (4.0-11.0) Red Blood Count 3.50 x10^6/uL (4.30-5.70) Hemoglobin 11.9 g/dL (13.0-17.5) Hematocrit 35.1 % (39.0-53.0) Mean Corpuscular Volume 100 fL (79-100) Mean Corpuscular Hemoglobin 34 pg (25-35) Mean Corpuscular Hemoglobin Concent 34 g/dL (31-37) Red Cell Distribution Width 13.3 % (11.5-14.5) Platelet Count 142 x10^3/uL (140-400) Neutrophils (%) (Auto) 37 % (31-73) Lymphocytes (%) (Auto) 42 % (24-48) Monocytes (%) (Auto) 20 % (0-9) Eosinophils (%) (Auto) 1 % (0-3) Basophils (%) (Auto) 0 % (0-3) Neutrophils # (Auto) 1.2 x10^3uL (1.8-7.7) Lymphocytes # (Auto) 1.3 x10^3/uL (1.0-4.8) Monocytes # (Auto) 0.6 x10^3/uL (0.0-1.1) Eosinophils # (Auto) 0.0 x10^3/uL (0.0-0.7) Basophils # (Auto) 0.0 x10^3/uL (0.0-0.2) Segmented Neutrophils % 36 % (35-66) Lymphocytes % 46 % (24-48) Monocytes % 16 % (0-10) Eosinophils % 2 % (0-5) Platelet Estimate Adequate (ADEQUATE) Sodium Level 137 mmol/L (136-145) Potassium Level 3.9 mmol/L (3.5-5.1) Chloride Level 104 mmol/L (98-107) Carbon Dioxide Level 20 mmol/L (21-32) Anion Gap 13 (6-14) Blood Urea Nitrogen 11 mg/dL (8-26) Creatinine 0.9 mg/dL (0.7-1.3) Estimated GFR (Cockcroft-Gault) 101.2 Glucose Level 95 mg/dL (70-99) Calcium Level 8.8 mg/dL (8.5-10.1) Magnesium Level 1.8 mg/dL (1.8-2.4) Physical Exam HEENT: Neck Supple W Full Motion Chest: Symmetric LUNGS: Clear to Auscultation Heart: S1S2, RRR (SR), murmurs (2/6 systolic murmur to LLS border) Abdomen: Soft N/T Extremities: No Edema, No Calf Tenderness Neurology: alert, oriented, follow commands Assessment Assessment 1. Small Subacute right BG infarct: neurology following. past hx of CVA. 2. Cardiomyopathy: EF at 20-25%. Clinically compensated. EF on 04/2017 was 35% 3. CAD: open heart, records unclear if CABG as spouse mentioned only his valve was repaired and no grafts. 4. Likely dementia: poor recall. 5. LBBB likely chronic 6. HTN: controlled 7. DLP: HDL low. 8. Chronic alcoholism: at least 4 shots of kim with 40 oz of beer at least 3 x a week 9. Tobaccoism 10. Arrhythmia: NSVT x1. Mg And K are low nml. Recommendations 1. Will start on low dose toprol and lisinopril. Start on low dose lipitor. Continue with ASA. 2. 2L FR. daily wt. I & O.daily wt. and CHF education 3. Pt does not want any procedures done at this time. 4. I discussed with spouse his heart condition and so far she told me that pt is very stubborn and currently pt wants to go home. She has been trying to have him quit ETOH but failed. He follows with Dr. Hardin whom he saw 11/2017 accdg to . I discussed his current treatment and potential further treatment with his . Will defer further with Dr. Hardin from and to see Dr. Hardin next week for follow up. 5. Smoking cessation and curbing use or cessation of ETOH records 1. PMHx: Hep C, CAD, PAD, LHC 2014 (mild disease), CABG, COPD, NICM noted in 2016 JUVENAL YANEZ APRN May 05, 2018 12:05
[2018-05-05] MEDS ORDERED: POTASSIUM CHLORIDE 20 MEQ TABLET.ER. PO ONE (13:00)
[2018-05-05] MEDS ORDERED: MAGNESIUM SULFATE 2GM 50 ML IV ONE (13:00)
--- NOTE | 2018-05-05 15:26 | PDOC ---
PROGRESS NOTES Assessment Assessment Small subacute right BG infarct likely per clinical symptoms combined MRI findings. Metabolic encephalopathy. Left side facial drooping x 1-2 days before admission.. Left UE numbness x 2 days before admission.. Dizziness x 2 days before admission. Light headiness x 2 days before admission. CHF EF 20%-25%. HTN. Old lorena microhemorrhage. 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 CAD s/p CABG. Cannabinoid positive. RECOMMENDATIONS/PLAN: ASA 325 mg daily. Lipitor HS. Consulted Cardiology. Treat medical diseases. Carotid A US + Doppler: No high grade stenosis. Echo + Bubble study: EF 20-25%. Fasting lipids: WNL. History of Present Illness 68-year-old male with above medical diseases and old stroke developed symptoms of dizziness, light headiness, left side UE numbness and tingling about 2 days ago and his symptoms persistent. He was noted left side facial drooping and was brought in by concerned son, lives at home, to the ER of [facility] for further evaluation. Past Medical History Cardiovascular: CAD Pulmonary: Bronchitis, COPD GI: GERD Neurology: Olc stroke. Past Surgical History CABG, Other (back sx) Family History Hypertension Social History Smoke: <1 pack per day ALCOHOL: Denied. Drugs: None, but test positive for cannabinoids. ALLERGY: Unknown MEDICATIONS: Refer to MAR REVIEW OF SYSTEMS: Constitutional: No malnutrition, weight loss, cachexia. Head: No traumatic brain or head injury. Skin: No edema, or rash. Ear: No infection. Eyes: No vision loss or color blindness. Nose: No bleeding or purulent discharges. Hearing: Hearing decrease. Neck: No injury. Cardiac:CAD, s/p CABG, HTN, HLD. Pulmonary: Smoking. GI: No GI ulcer, GI bleeding. Urinary/genital: No dysuria, incontinence, urinary retention. Endocrinologic: No cousin face, craniofacial dysmorphism, polydactyly. Skeletomuscular: Generalized weakness. Neurological: see HP. Psychiatric: Drug use/abuse. Otherwise, not [id number] review of systems. PHYSICAL EXAMINATION: General appearance is in subacute distress. HEENT: Normocephalic and nontraumatic. Eyes, nose, ears, and throat are unremarkable. Neck is supple. No lymphadenopathy. No crepitus. Cardiovascular: S1, S2, regular rate and rhythm. Pulmonary: Clear to auscultation bilaterally. Abdomen: Bowel sounds are positive. Extremities: No rash, lesions, or edema. No restriction of range of motion NEUROLOGICAL EXAMINATION: Awake. Not oriented to time, but knew place and person. PERRL. EOMI. CN: no focal findings. Muscle tone: Fluctuated. Muscle strength: 4+ DTR: 2 Plantar reflex: Neutral response bilaterally Gait: Able to walk slowly with a cane. Sensory exam: no abnormal findings. No cerebellar signs elicited. F-T-N test fine. Objective Objective Vital Signs Date Time Temp Pulse Resp B/P (MAP) Pulse Ox O2 Delivery O2 Flow Rate FiO2 05/05/18 14:59 100 Room Air 05/05/18 13:25 88 146/91 05/05/18 11:20 98.2 18 98.2 Intake and Output 05/05/18 06:59 Intake Total 1240 ml Output Total 200 ml Balance 1040 ml Intake Oral 1240 ml Output Urine Total 200 ml # Voids 4 Vitals Signs Vitals VS - Last 72 Hours, by Label Date Time Temp Pulse Resp B/P (MAP) Pulse Ox O2 Delivery O2 Flow Rate FiO2 05/05/18 14:59 100 Room Air 05/05/18 13:25 88 146/91 05/05/18 13:24 88 146/91 05/05/18 12:08 Room Air 05/05/18 11:20 98.2 88 18 146/91 (109) 99 Room Air 98.2 05/05/18 08:00 Room Air 05/05/18 07:53 Room Air 05/05/18 07:20 98.2 81 18 158/78 (104) 99 Room Air 98.2 05/05/18 03:30 98.0 91 18 130/79 (96) 99 Room Air 98.0 05/04/18 23:30 97.9 48 18 131/92 (105) 100 Room Air 97.9 05/04/18 20:00 Room Air 05/04/18 19:45 97.7 86 20 145/78 (100) 99 Room Air 97.7 05/04/18 15:28 Room Air 05/04/18 14:52 98.0 93 18 109/71 (84) 99 Room Air 98.0 05/04/18 10:55 Room Air 05/04/18 10:48 98.5 87 18 137/81 (99) 100 Room Air 98.5 05/04/18 08:10 Room Air 05/04/18 07:20 99 Room Air 05/04/18 07:09 97.8 80 17 143/91 (108) 100 Room Air 97.8 Laboratory Laboratory Laboratory Tests Test 05/05/18 04:05 White Blood Count 3.2 x10^3/uL (4.0-11.0) Red Blood Count 3.50 x10^6/uL (4.30-5.70) Hemoglobin 11.9 g/dL (13.0-17.5) Hematocrit 35.1 % (39.0-53.0) Mean Corpuscular Volume 100 fL (79-100) Mean Corpuscular Hemoglobin 34 pg (25-35) Mean Corpuscular Hemoglobin Concent 34 g/dL (31-37) Red Cell Distribution Width 13.3 % (11.5-14.5) Platelet Count 142 x10^3/uL (140-400) Neutrophils (%) (Auto) 37 % (31-73) Lymphocytes (%) (Auto) 42 % (24-48) Monocytes (%) (Auto) 20 % (0-9) Eosinophils (%) (Auto) 1 % (0-3) Basophils (%) (Auto) 0 % (0-3) Neutrophils # (Auto) 1.2 x10^3uL (1.8-7.7) Lymphocytes # (Auto) 1.3 x10^3/uL (1.0-4.8) Monocytes # (Auto) 0.6 x10^3/uL (0.0-1.1) Eosinophils # (Auto) 0.0 x10^3/uL (0.0-0.7) Basophils # (Auto) 0.0 x10^3/uL (0.0-0.2) Segmented Neutrophils % 36 % (35-66) Lymphocytes % 46 % (24-48) Monocytes % 16 % (0-10) Eosinophils % 2 % (0-5) Platelet Estimate Adequate (ADEQUATE) Sodium Level 137 mmol/L (136-145) Potassium Level 3.9 mmol/L (3.5-5.1) Chloride Level 104 mmol/L (98-107) Carbon Dioxide Level 20 mmol/L (21-32) Anion Gap 13 (6-14) Blood Urea Nitrogen 11 mg/dL (8-26) Creatinine 0.9 mg/dL (0.7-1.3) Estimated GFR (Cockcroft-Gault) 101.2 Glucose Level 95 mg/dL (70-99) Calcium Level 8.8 mg/dL (8.5-10.1) Magnesium Level 1.8 mg/dL (1.8-2.4) Medication Medications Current Medications Atorvastatin Calcium (Lipitor) 5 mg QHS PO ; Start 05/05/18 at 21:00 Lisinopril (Prinivil) 2.5 mg DAILY PO Last administered on 05/05/18at 13:24; Start 05/05/18 at 12:00 Magnesium Sulfate 50 ml @ 25 mls/hr 1X ONCE IV Last administered on 05/05/18at 13:26; Start 05/05/18 at 13:00; Stop 05/05/18 at 14:59; Status DC Metoprolol Succinate (Toprol Xl) 25 mg DAILY PO Last administered on 05/05/18at 13:25; Start 05/05/18 at 12:00 Potassium Chloride (Klor-Con) 20 meq 1X ONCE PO Last administered on at 13:25; Start 05/05/18 at 13:00; Stop 05/05/18 at 13:01; Status DC Comment Review of Relevant I have reviewed the following items joan (where applicable) has been applied. CAROLE FUNK MD May 05, 2018 15:26
[2018-05-05 15:31] VITALS: BP 128/81
--- NOTE | 2018-05-05 15:59 | PDOC3 ---
Discharge Summary Date of Admission: May 02, 2018 Date of Discharge: May 05, 2018 Follow-Up: 3-5 days Admitting Diagnosis comment: DISCHARGE DX Assessment/Plan Left facial droop, left-sided arm tingling numbness, left cold feet-out of TPA window -acute CVA right side- Check CT head, MRI probable component of chronic microvascular ischemic disease and also old lacunar infarcts Third and lateral ventriculomegaly is greater than previously, could be due to progression of supratentorial involutional change although difficult to exclude component of communicating hydrocephalus. THC ABUSE ALCOHOL ABUSE Aspirin if CT head is negative neurology following History of CABG 1992 History of back surgery 2015 History of prostate cancer, chronic Accelerated hypertension POA 05/04 still unsteady at times with gait personally reviewed mri head images, note new cva areas 05/05 pt is very stubborn and currently pt wants to go home. Plan: Carotid A US + Doppler. Echo + Bubble study. pending Fasting lipid panel in a.m. CT head, MRI if CT is negative, aspirin if CT head negative, control blood pressure, neurology consult, pending permissive hTN, BP MEDS ADDED 05/05 Vitals Vitals Vital Signs Date Time Temp Pulse Resp B/P (MAP) Pulse Ox O2 Delivery O2 Flow Rate FiO2 05/05/18 07:53 Room Air 05/05/18 07:20 98.2 81 18 158/78 (104) 99 98.2 Physical Exam General: Alert, Oriented X3, Cooperative, No acute distress Heart: Regular rate (SR), Normal S1, Normal S2 Lungs: Clear Abdomen: Normal bowel sounds, Soft, No tenderness, No hepatosplenomegaly Extremities: No cyanosis, No edema Skin: No breakdown, No significant lesion FINAL DIAGNOSIS Problems Medical Problems: (1) Weakness Status: Acute Brief Hospital Course Mr. Bergeron is a 68 old [sex] who presented with [ACUTE CVA ] CONDITION AT DISCHARGE: Comment (POOR PROGNOSIS) Discharge Medications Current Medications Labetalol HCl (Normodyne Iv Push) 10 mg PRN Q2HR PRN IVP HYPERTENSION, SEE COMMENTS; Start 05/02/18 at 19:30 Tramadol HCl (Ultram) 50 mg PRN Q6HRS PRN PO PAIN; Start 05/02/18 at 19:30 Promethazine HCl (Phenergan) 12.5 mg PRN Q6HRS PRN PO NAUSEA/VOMITING; Start at 19:30 Famotidine (Pepcid) 20 mg BID PO Last administered on 05/05/18at 09:05; Start at 21:00 Nicotine (Nicoderm Cq 21mg) 1 patch PRN DAILY PRN TD SMOKING CESSATION; Start 05/02/18 at 19:30 Aspirin (Children'S Aspirin) 324 mg 1X ONCE PO Last administered on 05/02/18at 20:20; Start 05/02/18 at 20:15; Stop 05/02/18 at 20:16; Status DC Aspirin (Ecotrin) 325 mg DAILYWBKFT PO Last administered on 05/05/18 09:05; Start 05/03/18 at 08:00 Tramadol HCl (Ultram) 50 mg PRN Q6HRS PRN PO PAIN; Start 05/03/18 at 01:15; Status Cancel Non-Formulary Medication (Fluticasone/ Salmeterol (Advair 500-50 Diskus)) 1 puff BID IH ; Start 05/03/18 at 09:00; Status UNV Budesonide (Pulmicort) 0.5 mg RTBID NEB Last administered on 05/05/18at 07:52; Start 05/03/18 at 08:00 Albuterol Sulfate (Ventolin Neb Soln) 2.5 mg RTQID NEB Last administered on at 14:57; Start 05/03/18 at 08:00 Metoprolol Succinate (Toprol Xl) 25 mg DAILY PO Last administered on 05/05/18at 13:25; Start 05/05/18 at 12:00 Lisinopril (Prinivil) 2.5 mg DAILY PO Last administered on 05/05/18 13:24; Start 05/05/18 at 12:00 Atorvastatin Calcium (Lipitor) 5 mg QHS PO ; Start 05/05/18 at 21:00 Magnesium Sulfate 50 ml @ 25 mls/hr 1X ONCE IV Last administered on 05/05/18 13:26; Start 05/05/18 at 13:00; Stop 05/05/18 at 14:59; Status DC Potassium Chloride (Klor-Con) 20 meq 1X ONCE PO Last administered on at 13:25; Start 05/05/18 at 13:00; Stop 05/05/18 at 13:01; Status DC Active Scripts Active Reported Promethazine-Codeine Syrup (Promethazine Hcl/Codeine) 118 Ml Syrup 20 Ml PO DAILY Advair 500-50 Diskus (Fluticasone/Salmeterol) 1 Each Disk.w.dev 1 Puff IH BID Aspirin Ec (Aspirin) 325 Mg Tablet.dr 1 Tab PO DAILY Tramadol Hcl 50 Mg Tablet 50 Mg PO Q6HRS PRN Vital Signs Vital Signs Date Time Temp Pulse Resp B/P (MAP) Pulse Ox O2 Delivery O2 Flow Rate FiO2 05/05/18 15:31 98.1 94 18 128/81 (97) 100 Room Air 98.1 Labs Laboratory Tests Test 05/04/18 04:55 05/05/18 04:05 Triglycerides Level 96 mg/dL (0-150) Cholesterol Level 126 mg/dL (0-200) LDL Cholesterol, Calculated 69 mg/dL (0-100) VLDL Cholesterol, Calculated 19 mg/dL (0-40) Non-HDL Cholesterol Calculated 88 mg/dL (0-129) HDL Cholesterol 38 mg/dL (40-60) Cholesterol/HDL Ratio 3.3 White Blood Count 3.2 x10^3/uL (4.0-11.0) Red Blood Count 3.50 x10^6/uL (4.30-5.70) Hemoglobin 11.9 g/dL (13.0-17.5) Hematocrit 35.1 % (39.0-53.0) Mean Corpuscular Volume 100 fL (79-100) Mean Corpuscular Hemoglobin 34 pg (25-35) Mean Corpuscular Hemoglobin Concent 34 g/dL (31-37) Red Cell Distribution Width 13.3 % (11.5-14.5) Platelet Count 142 x10^3/uL (140-400) Neutrophils (%) (Auto) 37 % (31-73) Lymphocytes (%) (Auto) 42 % (24-48) Monocytes (%) (Auto) 20 % (0-9) Eosinophils (%) (Auto) 1 % (0-3) Basophils (%) (Auto) 0 % (0-3) Neutrophils # (Auto) 1.2 x10^3uL (1.8-7.7) Lymphocytes # (Auto) 1.3 x10^3/uL (1.0-4.8) Monocytes # (Auto) 0.6 x10^3/uL (0.0-1.1) Eosinophils # (Auto) 0.0 x10^3/uL (0.0-0.7) Basophils # (Auto) 0.0 x10^3/uL (0.0-0.2) Segmented Neutrophils % 36 % (35-66) Lymphocytes % 46 % (24-48) Monocytes % 16 % (0-10) Eosinophils % 2 % (0-5) Platelet Estimate Adequate (ADEQUATE) Sodium Level 137 mmol/L (136-145) Potassium Level 3.9 mmol/L (3.5-5.1) Chloride Level 104 mmol/L (98-107) Carbon Dioxide Level 20 mmol/L (21-32) Anion Gap 13 (6-14) Blood Urea Nitrogen 11 mg/dL (8-26) Creatinine 0.9 mg/dL (0.7-1.3) Estimated GFR (Cockcroft-Gault) 101.2 Glucose Level 95 mg/dL (70-99) Calcium Level 8.8 mg/dL (8.5-10.1) Magnesium Level 1.8 mg/dL (1.8-2.4) Laboratory Tests Test 05/05/18 04:05 White Blood Count 3.2 x10^3/uL (4.0-11.0) Red Blood Count 3.50 x10^6/uL (4.30-5.70) Hemoglobin 11.9 g/dL (13.0-17.5) Hematocrit 35.1 % (39.0-53.0) Mean Corpuscular Volume 100 fL (79-100) Mean Corpuscular Hemoglobin 34 pg (25-35) Mean Corpuscular Hemoglobin Concent 34 g/dL (31-37) Red Cell Distribution Width 13.3 % (11.5-14.5) Platelet Count 142 x10^3/uL (140-400) Neutrophils (%) (Auto) 37 % (31-73) Lymphocytes (%) (Auto) 42 % (24-48) Monocytes (%) (Auto) 20 % (0-9) Eosinophils (%) (Auto) 1 % (0-3) Basophils (%) (Auto) 0 % (0-3) Neutrophils # (Auto) 1.2 x10^3uL (1.8-7.7) Lymphocytes # (Auto) 1.3 x10^3/uL (1.0-4.8) Monocytes # (Auto) 0.6 x10^3/uL (0.0-1.1) Eosinophils # (Auto) 0.0 x10^3/uL (0.0-0.7) Basophils # (Auto) 0.0 x10^3/uL (0.0-0.2) Segmented Neutrophils % 36 % (35-66) Lymphocytes % 46 % (24-48) Monocytes % 16 % (0-10) Eosinophils % 2 % (0-5) Platelet Estimate Adequate (ADEQUATE) Sodium Level 137 mmol/L (136-145) Potassium Level 3.9 mmol/L (3.5-5.1) Chloride Level 104 mmol/L (98-107) Carbon Dioxide Level 20 mmol/L (21-32) Anion Gap 13 (6-14) Blood Urea Nitrogen 11 mg/dL (8-26) Creatinine 0.9 mg/dL (0.7-1.3) Estimated GFR (Cockcroft-Gault) 101.2 Glucose Level 95 mg/dL (70-99) Calcium Level 8.8 mg/dL (8.5-10.1) Magnesium Level 1.8 mg/dL (1.8-2.4) Allergies Allergies Coded Allergies Type Severity Reaction Last Updated Verified No Known Drug Allergies 05/02/18 No Disposition/Orders: D/C to Home AYE ROJAS MD May 05, 2018 15:58
[2018-05-05] MEDS ORDERED: LISI-338 PO (16:01)
[2018-05-05] MEDS ORDERED: ATOR10TA60 PO (16:01)
[2018-05-05] MEDS ORDERED: FAMO20TA5 PO (16:01)
[2018-05-05] MEDS ORDERED: ALBU2.5V8 NEB (16:01)
--- NOTE | 2018-05-05 16:02 | DISCH ---
DISCHARGE INSTRUCTIONS Condition on Discharge Condition on Discharge: Guarded Activity After Discharge Activity Instructions for Disc: Activity as tolerated Lifting Instructions after Dis: No heavy lifting, No pulling or pushing Exercise Instruction after Dis: Walk 10 min, 3 x per day Driving Instructions after Dis: Do not drive Diet after Discharge Diet after Discharge: Cardiac Checks after Discharge Checks after discharge: Check blood press - daily Contacting the DR. after DC Call your doctor for: If your condition worsens AYE ROJAS MD May 05, 2018 16:02
--- NOTE | 2018-05-05 16:48 | NUR ---
Pt discharged to home with . Discharge teaching completed re: diet, activity, medications and follow up. Pts has follow up appt with Dr Hardin for patient and [facility]. Verbalized understanding.
[2018-05-05] MEDS ORDERED: ATORVASTATIN CALCIUM 10 MG TABLET. PO SCH (21:00)
== END 2018-05-05 16:55 | disposition home or self-care (01) | DRG 64 ==
LOC: ER 17:31 → 6 SOUTH 18:05
PROVIDERS: ADMIT Internal Medicine; ATTEND Internal Medicine
DX: I63.9 Cerebral infarction, unspecified (principal); G93.41 Metabolic encephalopathy; I42.9 Cardiomyopathy, unspecified; I47.2 Ventricular tachycardia; R29.810 Facial weakness; R20.2 Paresthesia of skin; R20.0 Anesthesia of skin; I11.0 Hypertensive heart disease with heart failure; I50.9 Heart failure, unspecified; M19.90 Unspecified osteoarthritis, unspecified site; E78.5 Hyperlipidemia, unspecified; F12.10 Cannabis abuse, uncomplicated; F10.20 Alcohol dependence, uncomplicated; F17.210 Nicotine dependence, cigarettes, uncomplicated; I25.10 Atherosclerotic heart disease of native coronary artery without angina pectoris; I44.7 Left bundle-branch block, unspecified; J44.9 Chronic obstructive pulmonary disease, unspecified; K21.9 Gastro-esophageal reflux disease without esophagitis; Z79.82 Long term (current) use of aspirin; Z82.49 Family history of ischemic heart disease and other diseases of the circulatory system; Z79.899 Other long term (current) drug therapy; Z85.46 Personal history of malignant neoplasm of prostate; Z86.73 Personal history of transient ischemic attack (TIA), and cerebral infarction without residual deficits; Z95.1 Presence of aortocoronary bypass graft
CPT/HCPCS: 36415; 70450; 70551; 71045; 80048; 80053; 80061; 80307; 81001; 82607; 83735; 83880; 84443; 84484; 85007; 85025; 85610; 93005; 93306; 93880; 94640; 94760; J3475; J7613; J7626; 99285-25